=== PATIENT | male | born 1960 | race Caucasian/White ===

== ENCOUNTER 2021-11-27 12:27 | Inpatient (IN) ==
[2021-11-27] MEDS ORDERED: 0.9 % SODIUM CHLORIDE 1,000 ML IV ONE ×3 (13:10→15:06)
[2021-11-27] MEDS ORDERED: ONDANSETRON 4 MG/2 ML VIAL IV ONE (13:10)
--- NOTE | 2021-11-27 13:45 | Emergency Department Note ---
Nausea/Vomiting/Diarrhea HPI General Chief complaint: Nausea/Vomiting/Diarrhea Stated complaint: Diarrhea Time Seen by Provider: 11/27/21 13:09 Source: patient Mode of arrival: ambulatory History of Present Illness HPI Narrative: 61-year-old male with history of alcohol use disorder presents with 1 week of daily alcohol intake, about a liter of hard alcohol per day with persistent diarrhea and nausea and vomiting. Prior to a week ago he had stopped for 6 weeks. He sees a therapist at [facility], but has been unable to see her for the last month due to having COVID. He reports no history of florid withdrawals. When he attempts to stop he tapers himself down with his alcohol intake. He was admitted to [facility] over a year ago for severe hyponatremia and jaundice. He states his work-up was extensive at that time they saw no evidence of liver cirrhosis. He denies recurrence of jaundice. He does describe an abdominal pain but it is located in the epigastric area. He describes as a "burning" sensation. He denies hematemesis, or bloody stools. He has had several episodes of diarrhea daily. No known history of GI bleed. Related Data Home Medications Medication Instructions Recorded Confirmed omega-3 fatty acids 1,000 mg 1,000 mg PO QDAY 06/25/19 11/27/21 capsule (Fish Oil Concentrate) omeprazole 20 mg capsule,delayed 40 mg PO QDAY 06/25/19 11/27/21 release multivitamin 1 tab PO QAM 11/23/19 11/27/21 thiamine HCl (vitamin B1) 100 mg 100 mg PO QDAY 11/23/19 11/27/21 tablet melatonin 5 mg capsule 5 - 10 mg PO DAILY cap 02/01/20 11/27/21 levothyroxine 125 mcg tablet 125 mcg PO QDAY tab 03/30/21 11/27/21 diphenhydramine HCl 25 mg tablet 50 mg PO QHS tab 09/11/21 11/27/21 Previous Rx's Medication Instructions Recorded folic acid 1 mg tablet 1 mg PO QDAY #90 tab 02/01/20 losartan 100 1 tab PO QDAY #90 tab 08/22/21 mg-hydrochlorothiazide 25 mg tablet clonazepam 1 mg tablet 1 mg PO QHS 30 Days #30 tab 10/29/21 trazodone 150 mg tablet 150 mg PO QHS #90 tab 11/21/21 Allergies Allergy/AdvReac Type Severity Reaction Status Date / Time propranolol Allergy Severe Hallucinati Verified 11/26/21 11:44 ons Review of Systems ROS ROS Narrative: Narrative: [facility] Narrative Patient History Narrative: Narrative: Medical/Surgical/Family History All Active Problems (Updated 11/27/21 @ 18:15 by Sanjuana Ann PA-C) MADELIN (acute kidney injury) (Acute) Acute dehydration (Acute) Alcohol abuse with withdrawal (Acute) Acute hypokalemia (Acute) Acute hyponatremia (Acute) Alcoholic gastritis (Acute) Viral illness (Acute) Closed head injury (Acute) Dehydration (Acute) Alcohol intoxication (Acute) Acute alcoholic gastritis (Acute) Pain and swelling of right ankle (Acute) Tinea cruris (Acute) Hand dermatitis (Acute) Erectile dysfunction (Acute) Impaired fasting glucose (Chronic) History of alcohol abuse (Chronic) Morbid obesity (Chronic) Alcoholic hepatitis (Acute) Mixed hyperlipidemia (Chronic) Elevated hemoglobin (Chronic) Obesity (Chronic) Thyroid gland insufficiency (acquired) (Chronic) Alcoholism in recovery (Chronic) Stomach ulcer (Chronic) Joint pain (Chronic) Insomnia (Chronic) Sepsis (Chronic) Knee pain, left (Chronic) Hypothyroidism (Chronic) GERD (gastroesophageal reflux disease) (Chronic) Hypertension (Chronic) Medical History (Updated 11/27/21 @ 18:15 by Sanjuana Ann PA-C) Alcoholic hepatitis Alcoholism in recovery Elevated hemoglobin Erectile dysfunction With low libido. Will check testosterone levels. GERD (gastroesophageal reflux disease) Hand dermatitis Counseled on proper hand hygiene, washing hands last, and lukewarm water. Advised to use Aveeno or CeraVe lotion on the hands, avoid scented lotions. History of alcohol abuse States his last drink was October 20, and he feels better since quitting, and plans to remain abstinent. Hypertension Hypothyroidism Impaired fasting glucose A1c peaked at 6.5% in 2018. States that it was 6.2% last time checked. States fasting glucose in the mornings is currently under 105. Insomnia Joint pain Knee pain, left Mixed hyperlipidemia Morbid obesity Patient is losing weight intentionally. States he has lost 100 pounds 4 time s in his life. Now that he is not drinking, he is doing better at improving lifestyle. He is not exercising due to ankle pain. And he is trying to improve his diet by eating less carbohydrates. Obesity Pain and swelling of right ankle Chronic recurrence. Unknown etiology. Refer to podiatry Sepsis Stomach ulcer Thyroid gland insufficiency (acquired) Tinea cruris Continue OTC terbinafine cream twice daily. Surgical History H/O vasectomy (~1991) History of hernia repair (~1999) Inguinal History of surgery (~1999) New pt form says; "Gynecomastia" Family History Mother Arthritis Dementia High blood pressure Thyroid disease Heart disease, congenital Non insulin dependent diabetes mellitus with ophthalmic complication Breast cancer Twice, 29 surgeries Father , Age 76 Lung cancer High blood pressure Heavy smoker Son Autism Anxiety and depression Low testosterone Daughter Anxiety and depression Social History Smoking Status: Former smoker Alcohol Intake Frequency: 0-2 drinks per day Substance Use: does not use Exam Narrative Narrative: Narrative: Course Course Course Narrative: 61-year-old male presents for epigastric pain and nausea and vomiting with diarrhea in the setting of heavy alcohol use in the last week. Reevaluation(s) Reevaluation #1: CIWA score is 7 and he is tremulous on exam. Will check a blood alcohol level and administer Librium for mild withdrawal symptoms Establish IV and give IV fluids Check a CMP for electrolytes and liver function Give IV Protonix x1 dose. Reevaluation #2: CMP with potassium of 3.2, sodium of 131, creatinine of 3.9, AST is 100, ALT 47, T bili 1.6--> obtain right upper quadrant abdominal ultrasound to rule out acute cholecystitis Urine dip is negative for ketones, protein, nitrite and leukocyte esterase. Creatinine is 200. Normal P:C ratio CBC with leukocytosis of 12,200 Patient's epigastric pain is better but is still persistent. We will trial a GI cocktail. Give 20 mEq potassium orally x1 dose. Obtain Given the patient's MADELIN, electrolyte derangement, he would benefit from admission and further work-up and monitoring. I reached out to the hospitalist for admission. Reevaluation #3: Patient's pain is improved with GI cocktail. Right upper quadrant ultrasound is negative for acute cholecystitis Additional Reevaluation(s): Case was discussed with the hospitalist and there was some concern for other process going on with his kidneys not related to a prerenal problem. I was asked to consult Dr. Raymundo. Dr. Raymundo is happy to consult on this patient and requested that I order a total CPK and phosphorus. Vital Signs Vital signs: Vital Signs Temperature 96.8 F L 11/27/21 12:35 Pulse Rate 125 H 11/27/21 12:35 Respiratory Rate 24 H 11/27/21 12:35 Blood Pressure 130/80 11/27/21 12:35 Pulse Oximetry (%) 95 11/27/21 12:35 Temperature 96.8 F L 11/27/21 12:35 Pulse Rate 119 H 11/27/21 17:43 Respiratory Rate 24 H 11/27/21 12:35 Blood Pressure 121/76 11/27/21 16:46 Pulse Oximetry (%) 95 11/27/21 17:43 MDM MDM Narrative Medical decision making narrative: Mild alcohol withdrawal Acute kidney injury Alcoholic gastritis Hypokalemia Hyponatremia Patient has been accepted for admission. He has received 2 L of IV fluids for rehydration. Nephrology, Dr. Raymundo will consult. Phosphorus and creatinine kinase are pending. Potassium has been replaced. Patient has been given 50 mg of Librium and is feeling much less tremulous. Lab Data Result diagrams: 11/27/21 13:34 11/27/21 13:33 Labs: Lab Results 11/27/21 11/27/21 11/27/21 Range/Units 13:33 13:34 13:34 WBC 12.2 H (4.5-11.0) K/mcL RBC 4.79 (4.63-6.08) M/mcL Hgb 15.0 (13.7-17.5) g/dL Hct 42.1 (40.1-51.0) % POC Hct (41-55) % MCV 87.9 (80.0-100.0) fL MCH 31.3 (26.0-34.0) pg MCHC 35.6 (31.0-36.0) g/dL RDW 14.1 (11.5-14.5) % Plt Count 67 L (140-440) K/mcL MPV 12.6 H (7.4-10.4) fL Neut % (Auto) 85.4 H (38.0-78.0) % Lymph % (Auto) 6.7 L (15.5-49.0) % [place] % (Auto) 7.6 (1.0-12.0) % Eos % (Auto) 0 (0.0-7.0) % Baso % (Auto) 0.3 (0.0-2.0) % Lymph # (Auto) 0.82 L (1.50-4.80) K/mcL [place] # (Auto) 0.93 H (0.10-0.90) K/mcL Eos # (Auto) 0 (0.00-0.70) K/mcL Baso # (Auto) 0.04 (0.00-0.30) K/mcL Absolute Neutrophils 10.42 H (1.80-8.00) K/mcL POC Sodium (133-145) mEq/L Sodium 131 L (133-145) mmol/L POC Potassium (3.3-5.1) mEql/L Potassium 3.2 L (3.3-5.1) mmol/L POC Chloride (96-108) mEq/L Chloride 86 L (96-108) mmol/L Carbon Dioxide 21 L (22-30) mmol/L POC Total CO2 (22-30) mmol/L Anion Gap 24.0 H (8.0-16.0) POC BUN (6-20) mg/dL BUN 14 (8-23) mg/dL Creatinine 3.9 H (0.7-1.2) mg/dL POC Creatinine (0.6-1.2) mg/dL GFR Calculation 16 Glucose 143 H (70-105) mg/dL POC Glucose (70-105) mg/dL Calcium 9.6 (8.6-10.4) mg/dL POC WB Ioniz Calcium (1.16-1.32) mmEq/L Total Bilirubin 1.6 H (0.1-1.0) mg/dL AST 100 H (<40) U/L ALT 47 H (<40) U/L Alkaline Phosphatase 87 (39-117) U/L Total Protein 7.4 (5.9-8.4) gm/dL Albumin 4.1 (3.2-5.2) gm/dL Globulin 3.3 (2.2-3.7) gm/dL Albumin/Globulin Ratio 1.2 (1.0-2.3) Lipase 29 (7-60) U/L Ethyl Alcohol 0.197 H (<0.010) gm/dL 11/27/21 Range/Units 16:04 WBC (4.5-11.0) K/mcL RBC (4.63-6.08) M/mcL Hgb (13.7-17.5) g/dL Hct (40.1-51.0) % POC Hct 46 (41-55) % MCV (80.0-100.0) fL MCH (26.0-34.0) pg MCHC (31.0-36.0) g/dL RDW (11.5-14.5) % Plt Count (140-440) K/mcL MPV (7.4-10.4) fL Neut % (Auto) (38.0-78.0) % Lymph % (Auto) (15.5-49.0) % [place] % (Auto) (1.0-12.0) % Eos % (Auto) (0.0-7.0) % Baso % (Auto) (0.0-2.0) % Lymph # (Auto) (1.50-4.80) K/mcL [place] # (Auto) (0.10-0.90) K/mcL Eos # (Auto) (0.00-0.70) K/mcL Baso # (Auto) (0.00-0.30) K/mcL Absolute Neutrophils (1.80-8.00) K/mcL POC Sodium 134 (133-145) mEq/L Sodium (133-145) mmol/L POC Potassium 2.9 L* (3.3-5.1) mEql/L Potassium (3.3-5.1) mmol/L POC Chloride 94 L (96-108) mEq/L Chloride (96-108) mmol/L Carbon Dioxide (22-30) mmol/L POC Total CO2 22 (22-30) mmol/L Anion Gap (8.0-16.0) POC BUN 15 (6-20) mg/dL BUN (8-23) mg/dL Creatinine (0.7-1.2) mg/dL POC Creatinine 4.3 H (0.6-1.2) mg/dL GFR Calculation Glucose (70-105) mg/dL POC Glucose 139 H (70-105) mg/dL Calcium (8.6-10.4) mg/dL POC WB Ioniz Calcium 1.01 L (1.16-1.32) mmEq/L Total Bilirubin (0.1-1.0) mg/dL AST (<40) U/L ALT (<40) U/L Alkaline Phosphatase (39-117) U/L Total Protein (5.9-8.4) gm/dL Albumin (3.2-5.2) gm/dL Globulin (2.2-3.7) gm/dL Albumin/Globulin Ratio (1.0-2.3) Lipase (7-60) U/L Ethyl Alcohol (<0.010) gm/dL Discharge Plan Patient/Caregiver Discharge Instructions Pt seen by CLAIMS DIRECTOR/PA only: Yes Clinical Impression: MADELIN (acute kidney injury), Acute dehydration, Alcohol abuse with withdrawal, Acute hypokalemia, Acute hyponatremia, Alcoholic gastritis Patient Disposition: Xfer As Inpt ([facility]) Condition: Fair Follow up with: Ramirez Guzman MD [Primary Care Provider] - Prescriptions: No Action clonazepam 1 mg tablet 1 mg PO QHS 30 Days Qty: 30 0RF Rx Instructions: administer 30 minutes before bedtime Must last 30 days. trazodone 150 mg tablet 150 mg PO QHS Qty: 90 1RF thiamine HCl (vitamin B1) 100 mg tablet 100 mg PO QDAY 0RF multivitamin Tablet 1 tab PO QAM 0RF folic acid 1 mg tablet 1 mg PO QDAY Qty: 90 1RF levothyroxine 125 mcg tablet 125 mcg PO QDAY 0RF losartan-hydrochlorothiazide 100-25 mg tablet 1 tab PO QDAY Qty: 90 1RF diphenhydramine HCl 25 mg tablet 50 mg PO QHS 0RF omeprazole 20 mg capsule,delayed release(DR/EC) 40 mg PO QDAY 0RF omega-3 fatty acids [Fish Oil Concentrate] 1,000 mg capsule 1,000 mg PO QDAY 0RF melatonin 5 mg capsule 5 - 10 mg PO DAILY 0RF
[2021-11-27] MEDS ORDERED: PROPOFOL 200 MG/20 ML VIAL IV ONE (13:46)
[2021-11-27] MEDS ORDERED: PANTOPRAZOLE 40 MG TABLET PO ONE (14:07)
[2021-11-27 14:37] LABS: Alcohol,Blood 0.197 gm/dL (<0.010)
[2021-11-27 14:43] LABS: ALT/SGPT 47 U/L (<40); AST/SGOT 100 U/L (<40); Albumin 4.1 gm/dL (3.2-5.2); Albumin/Globulin Ratio 1.2 (1.0-2.3); Alkaline Phosphatase 87 U/L (39-117); Bilirubin,Total 1.6 mg/dL (0.1-1.0); Blood Urea Nitrogen 14 mg/dL (8-23); Calcium 9.6 mg/dL (8.6-10.4); Carbon Dioxide 21 mmol/L (22-30); Chloride 86 mmol/L (96-108); Globulin 3.3 gm/dL (2.2-3.7); Glomerular Filtration Rate 16; Glucose 143 mg/dL (70-105)
[2021-11-27] MEDS ORDERED: chlordiazePOXIDE 25 MG CAPSULE PO ONE (14:48)
[2021-11-27] MEDS ORDERED: POTASSIUM CHLORIDE 20 MEQ TABLET PO ONE ×2 (15:06→20:07)
[2021-11-27 15:43] LABS: Basophils # (Auto) 0.04 K/mcL (0.00-0.30); Basophils % (Auto) 0.3 % (0.0-2.0); Eosinophils # (Auto) 0 K/mcL (0.00-0.70); Eosinophils % (Auto) 0 % (0.0-7.0); Hematocrit 42.1 % (40.1-51.0); Lymphocytes # (Auto) 0.82 K/mcL (1.50-4.80); Lymphocytes % (Auto) 6.7 % (15.5-49.0); Mean Cell Volume 87.9 fL (80.0-100.0); Mean Corpuscular HGB Conc 35.6 g/dL (31.0-36.0); Mean Platelet Volume 12.6 fL (7.4-10.4); Monocytes # (Auto) 0.93 K/mcL (0.10-0.90); Monocytes % (Auto) 7.6 % (1.0-12.0); Neutrophils % (Auto) 85.4 % (38.0-78.0); Platelet Count 67 K/mcL (140-440); RBC 4.79 M/mcL (4.63-6.08); Red Cell Distribution Width 14.1 % (11.5-14.5); WBC 12.2 K/mcL (4.5-11.0)
[2021-11-27] MEDS ORDERED: PHENobarb/HYOSCY/ATROPINE/SCOP 1 DOSE BOTTLE PO ONE (15:50)
[2021-11-27 16:21] LABS: POC Blood Urea Nitrogen 15 mg/dL (6-20); POC CO2 22 mmol/L (22-30); POC Calcium, Ionized 1.01 mmEq/L (1.16-1.32); POC Chloride 94 mEq/L (96-108); POC Creatinine 4.3 mg/dL (0.6-1.2); POC Glucose, Random 139 mg/dL (70-105); POC Hematocrit 46 % (41-55); POC Potassium 2.9 mEql/L (3.3-5.1); POC Sodium 134 mEq/L (133-145)
--- NOTE | 2021-11-27 16:22 | Ultrasound Report ---
History: Elevated serum transaminase levels, alcohol abuse FINDINGS: Patient was technically difficult to scan due to large body habitus. The liver is enlarged and there is diffuse fatty infiltration. A 1.0 x 1.3 cm cyst is present deep in the left lobe. No solid mass is seen. Doppler shows normal blood flow in the hepatic and portal veins. No ascites is present. There are numerous small mobile stones within the gallbladder. The gallbladder wall is 2 mm in thickness and the patient was nontender while scanning over the gallbladder. Common bile duct measures up to 6 mm in diameter. Comparison with the prior ultrasound done on 10/30/19 shows the previously seen thickened gallbladder wall has returned to normal. The hepatomegaly and fatty infiltration are stable and the hepatic cyst is a chronic finding. IMPRESSION: Hepatomegaly with fatty infiltration Cholelithiasis, without evidence of cholecystitis Interpreted and Authenticated by: Maikel Estrada 11/27/21
[2021-11-27 18:20] LABS: Prothrombin Time 13.3 sec (11.9-14.5)
[2021-11-27] MEDS ORDERED: LORazepam 2 MG/ML VIAL IV ONE (18:37)
--- NOTE | 2021-11-27 18:50 | Internal Med History&Physical ---
HPI History of Present Illness Patient information: Note initiated : 11/27/21 at 6:37 pm Service Date, if different from initiated Date: [] Patient: Mohan Gambino a 61 y/o M admitted on for Diarrhea. Chief Complaint: [] History of present illness: Mr. Gambino is a 61 year old M Presents with nausea vomiting diarrhea. The diarrhea has been going on for a week but the nausea vomiting started this morning. Stop drinking heavy alcohol 6 weeks ago and has been following with [facility] but then started up hard alcohol for a week and then developed the symptoms. He also complains of being shaky and sweaty. And complains of pyrosis. In the ED his tremulous and tachycardic. He has mildly low sodium and potassium. BUN is fine but creatinine is quite elevated 3.9. AST and ALT ratios 2-1 Naturalist upon insulted due to the elevated creatinine. Abdominal ultrasound was done which showed fatty filtration of the liver and cholelithiasis, patient was nontender while palpating gallbladder on ultrasound and the common bile duct of 6 mm and previous ultrasound showed mildly thickened gallbladder as well. Review of Systems: Pertinent positives as above. Denies headache/fever/chills/chest or abdominal pain/cough/dyspnea. Remaining 10 point review of system reviewed negative PFSH PFSH All Active Problems (Updated 11/27/21 @ 18:15 by Sanjuana Ann PA-C) MADELIN (acute kidney injury) (Acute) Acute dehydration (Acute) Alcohol abuse with withdrawal (Acute) Acute hypokalemia (Acute) Acute hyponatremia (Acute) Alcoholic gastritis (Acute) Viral illness (Acute) Closed head injury (Acute) Dehydration (Acute) Alcohol intoxication (Acute) Acute alcoholic gastritis (Acute) Pain and swelling of right ankle (Acute) Tinea cruris (Acute) Hand dermatitis (Acute) Erectile dysfunction (Acute) Impaired fasting glucose (Chronic) History of alcohol abuse (Chronic) Morbid obesity (Chronic) Alcoholic hepatitis (Acute) Mixed hyperlipidemia (Chronic) Elevated hemoglobin (Chronic) Obesity (Chronic) Thyroid gland insufficiency (acquired) (Chronic) Alcoholism in recovery (Chronic) Stomach ulcer (Chronic) Joint pain (Chronic) Insomnia (Chronic) Sepsis (Chronic) Knee pain, left (Chronic) Hypothyroidism (Chronic) GERD (gastroesophageal reflux disease) (Chronic) Hypertension (Chronic) Medical History (Updated 11/27/21 @ 18:15 by Sanjuana Ann PA-C) Alcoholic hepatitis Alcoholism in recovery Elevated hemoglobin Erectile dysfunction With low libido. Will check testosterone levels. GERD (gastroesophageal reflux disease) Hand dermatitis Counseled on proper hand hygiene, washing hands last, and lukewarm water. Advised to use Aveeno or CeraVe lotion on the hands, avoid scented lotions. History of alcohol abuse States his last drink was October 20, and he feels better since quitting, and plans to remain abstinent. Hypertension Hypothyroidism Impaired fasting glucose A1c peaked at 6.5% in 2018. States that it was 6.2% last time checked. States fasting glucose in the mornings is currently under 105. Insomnia Joint pain Knee pain, left Mixed hyperlipidemia Morbid obesity Patient is losing weight intentionally. States he has lost 100 pounds 4 times in his life. Now that he is not drinking, he is doing better at improving lifestyle. He is not exercising due to ankle pain. And he is trying to improve his diet by eating less carbohydrates. Obesity Pain and swelling of right ankle Chronic recurrence. Unknown etiology. Refer to podiatry Sepsis Stomach ulcer Thyroid gland insufficiency (acquired) Tinea cruris Continue OTC terbinafine cream twice daily. Surgical History H/O vasectomy (~1991) History of hernia repair (~1999) Inguinal History of surgery (~1999) New pt form says; "Gynecomastia" Family History Mother Arthritis Dementia High blood pressure Thyroid disease Heart disease, congenital Non insulin dependent diabetes mellitus with ophthalmic complication Breast cancer Twice, 29 surgeries Father , Age 76 Lung cancer High blood pressure Heavy smoker Son Autism Anxiety and depression Low testosterone Daughter Anxiety and depression Social History household members: spouse and family housing: house lives independently: Yes marital status: occupational status: employed occupation: [employer] smoking status: Former smoker alcohol intake frequency: 0-2 drinks per day substance use type: does not use MEDS/ALLERGIES Home Medications and Allergies Home Medications Medication Instructions Recorded Confirmed Type omega-3 fatty acids 1,000 mg 1,000 mg PO QDAY 06/25/19 11/27/21 History capsule (Fish Oil Concentrate) omeprazole 20 mg capsule,delayed 40 mg PO QDAY 06/25/19 11/27/21 History release multivitamin 1 tab PO QAM 11/23/19 11/27/21 History thiamine HCl (vitamin B1) 100 mg 100 mg PO QDAY 11/23/19 11/27/21 History tablet folic acid 1 mg tablet 1 mg PO QDAY #90 tab 02/01/20 11/27/21 Rx melatonin 5 mg capsule 5 - 10 mg PO DAILY cap 02/01/20 11/27/21 History levothyroxine 125 mcg tablet 125 mcg PO QDAY tab 03/30/21 11/27/21 History losartan 100 1 tab PO QDAY #90 tab 08/22/21 11/27/21 Rx mg-hydrochlorothiazide 25 mg tablet diphenhydramine HCl 25 mg tablet 50 mg PO QHS tab 09/11/21 11/27/21 History clonazepam 1 mg tablet 1 mg PO QHS 30 Days #30 tab 10/29/21 11/27/21 Rx trazodone 150 mg tablet 150 mg PO QHS #90 tab 11/21/21 11/27/21 Rx Allergies Allergy/AdvReac Type Severity Reaction Status Date / Time propranolol Allergy Severe Hallucinati Verified 11/26/21 11:44 ons EXAM Constitutional Vitals: Temp Pulse Resp BP Pulse Ox 96.8 F L 119 H 24 H 121/76 95 11/27/21 12:35 11/27/21 17:43 11/27/21 12:35 11/27/21 16:46 11/27/21 17:43 Exam: General: Alert, Awake, No acute Distress, obese Eyes/N/T: EOMI, PERRL, dryMM Head/Neck: neck supple, normocephalic atraumatic CV: RRR, No murmurs, normal s1/s2 Pulm: Clear b/l, no wheezing/rhonchi/rales Abd: soft, nontender, +BS x4 Ext: no clubbing/cyanosis/edema Neuro: Alert, no focal deficits, moves all extremities, CN 2-12 grossly intact, symmetrical strength b/l upper/lower, sensations intact b/l upper/lower. Tremulous Skin: warm/dry DATA Data Completed and Pending Labs: Labs from last 24 hours 11/27/21 11/27/21 11/27/21 17:50 16:04 16:04 WBC RBC Hgb Hct POC Hct 46 MCV MCH MCHC RDW Plt Count MPV Neut % (Auto) Lymph % (Auto) [place] % (Auto) Eos % (Auto) Baso % (Auto) Lymph # (Auto) [place] # (Auto) Eos # (Auto) Baso # (Auto) Absolute Neutrophils PT INR POC Sodium 134 Sodium POC Potassium 2.9 L* Potassium POC Chloride 94 L Chloride Carbon Dioxide POC Total CO2 22 Anion Gap POC BUN 15 BUN Creatinine POC Creatinine 4.3 H GFR Calculation Glucose POC Glucose 139 H Calcium POC WB Ioniz Calcium 1.01 L Phosphorus Pending Total Bilirubin AST ALT Alkaline Phosphatase Total Creatine Kinase Pending Total Protein Albumin Globulin Albumin/Globulin Ratio Lipase Urine Color Pending Urine Appearance Pending Urine pH Pending Ur Specific [place] Pending Urine Protein Pending Urine Glucose (UA) Pending Urine Ketones Pending Urine Occult Blood Pending Urine Nitrate Pending Urine Bilirubin Pending Urine Urobilinogen Pending Ur Leukocyte Esterase Pending Ethyl Alcohol 11/27/21 11/27/21 11/27/21 13:34 13:34 13:34 WBC 12.2 H RBC 4.79 Hgb 15.0 Hct 42.1 POC Hct MCV 87.9 MCH 31.3 MCHC 35.6 RDW 14.1 Plt Count 67 L MPV 12.6 H Neut % (Auto) 85.4 H Lymph % (Auto) 6.7 L [place] % (Auto) 7.6 Eos % (Auto) 0 Baso % (Auto) 0.3 Lymph # (Auto) 0.82 L [place] # (Auto) 0.93 H Eos # (Auto) 0 Baso # (Auto) 0.04 Absolute Neutrophils 10.42 H PT 13.3 INR 1.0 POC Sodium Sodium POC Potassium Potassium POC Chloride Chloride Carbon Dioxide POC Total CO2 Anion Gap POC BUN BUN Creatinine POC Creatinine GFR Calculation Glucose POC Glucose Calcium POC WB Ioniz Calcium Phosphorus Total Bilirubin AST ALT Alkaline Phosphatase Total Creatine Kinase Total Protein Albumin Globulin Albumin/Globulin Ratio Lipase Urine Color Urine Appearance Urine pH Ur Specific [place] Urine Protein Urine Glucose (UA) Urine Ketones Urine Occult Blood Urine Nitrate Urine Bilirubin Urine Urobilinogen Ur Leukocyte Esterase Ethyl Alcohol 0.197 H 11/27/21 13:33 WBC RBC Hgb Hct POC Hct MCV MCH MCHC RDW Plt Count MPV Neut % (Auto) Lymph % (Auto) [place] % (Auto) Eos % (Auto) Baso % (Auto) Lymph # (Auto) [place] # (Auto) Eos # (Auto) Baso # (Auto) Absolute Neutrophils PT INR POC Sodium Sodium 131 L POC Potassium Potassium 3.2 L POC Chloride Chloride 86 L Carbon Dioxide 21 L POC Total CO2 Anion Gap 24.0 H POC BUN BUN 14 Creatinine 3.9 H POC Creatinine GFR Calculation 16 Glucose 143 H POC Glucose Calcium 9.6 POC WB Ioniz Calcium Phosphorus Total Bilirubin 1.6 H AST 100 H ALT 47 H Alkaline Phosphatase 87 Total Creatine Kinase Total Protein 7.4 Albumin 4.1 Globulin 3.3 Albumin/Globulin Ratio 1.2 Lipase 29 Urine Color Urine Appearance Urine pH Ur Specific [place] Urine Protein Urine Glucose (UA) Urine Ketones Urine Occult Blood Urine Nitrate Urine Bilirubin Urine Urobilinogen Ur Leukocyte Esterase Ethyl Alcohol A/P Narrative A/P Narrative: A: *Alcohol withdrawal: *Alcoholic hepatitis: *N/V/D: 2/2 above *MADELIN: 2/2 above *Hyponatremia/hypokalemia: *?early cirrhosis given Hyperbilirubinemia and thrombocytopenia vs 2/2 acute pathology *HTN: *GERD: *Hypothyroidism: * P: -ciwa protocol, prn mckenna, vitamins -IVF -f/u renal fxn, if does not improve will check renal u/s -f/u electrolytes -hold home ARB/HCTZ for madelin/hyponatremia - -referral to f/u with Dr. Viveros -ppx: lovenox / ppi Time Spent With Patient Time: Total time spent is greater than 50% in coordination of care (as documented) at patient's floor/unit and/or counseling patient:
[2021-11-27] MEDS ORDERED: LORazepam 2 MG/ML VIAL ONE (18:54)
[2021-11-27 19:08] LABS: Creatine Kinase 1289 U/L (24-195); Phosphorous 4.5 mg/dL (2.5-4.5)
[2021-11-27 19:08] LABS: Appearance,Urine Clear (Clear); Bacteria,Urine FEW /hpf (0); Bilirubin,Urine Negative (Negative); Color,Urine Yellow; Culture Indicated,Urine Yes; Glucose,Urine (UA) Negative (Negative); Ketones,Urine Negative (Negative); Leukocyte Esterase,Urine Negative /uL (Negative); Nitrate,Urine Negative (Negative); Protein,Urine Negative (Negative); Urine Blood Moderate ery/mcL (Negative); Urine RBC 1 /hpf (0-3); Urine Squamous Epithelial Cell 1 /hpf (0-4); Urine Transitional Epi Cells < 1 /hpf (0-2); Urine WBC 6 /hpf (0-4); Urobilinogen,Urine 0.2 E.U./dL mg/dL
[2021-11-27] MEDS ORDERED: METOCLOPRAMIDE 10 MG/2 ML VIAL IV PRN (19:51)
[2021-11-27] MEDS ORDERED: LABETALOL 5 MG/ML ML IV PRN (19:51)
[2021-11-27] MEDS ORDERED: THIAMINE 100 MG in 0.9 % SODIUM CHLORIDE 50 ML IV ONE (19:51)
[2021-11-27] MEDS ORDERED: cloNIDine HCL 0.1 MG TABLET PO PRN (19:51)
[2021-11-27] MEDS ORDERED: POTASSIUM CHLORIDE 20 MEQ TABLET PO PRN (19:51)
[2021-11-27] MEDS ORDERED: ACETAMINOPHEN 325 MG TABLET PO PRN (19:51)
[2021-11-27] MEDS ORDERED: POLYETHYLENE GLYCOL 3350 17 GM PACKET PO PRN (19:51)
[2021-11-27] MEDS ORDERED: IPRATROPIUM/ALBUTEROL 3 ML AMPUL.NEB NEB PRN (19:51)
[2021-11-27] MEDS ORDERED: POTASSIUM CHLORIDE 40 MEQ in DEXTROSE 5% IN WATER 500 ML IV PRN (19:51)
[2021-11-27] MEDS ORDERED: CALCIUM CARBONATE 500 MG TAB.CHEW CHEWED PRN (19:51)
[2021-11-27] MEDS ORDERED: MAGNESIUM SULFATE 2 GM/50 ML BAG IV PRN (19:51)
[2021-11-27] MEDS ORDERED: THIAMINE 100 MG/ML VIAL ONE (20:08)
[2021-11-27] MEDS: 0.9 % SODIUM CHLORIDE 1,000 ML IV SCH (20:39)
[2021-11-27] MEDS: LORazepam 2 MG/ML VIAL IV PRN ×3 (20:40→23:40)
[2021-11-27 21:02] LABS: Amphetamine Screen,Urine None detected; Barbiturate Screen,Urine None detected; Benzodiazepines Screen,Urine None detected; Cannabinoid Screen,Urine None detected; Cocaine Screen,Urine None detected; Opiate Screen,Urine None detected; Oxycodone, Urine Screen None detected; Phencyclidine Screen,Urine None detected
--- NOTE | 2021-11-27 21:10 | Event Note ---
Event Note Event Note: Call by ED concerning patient with ARF in the setting of presumed EtOH withdrawal syndrome. Vital Signs Temp Pulse Resp BP BP Pulse Ox 11/27/21 19:46 37.7 C H 20 156/89 96 11/27/21 17:43 119 H 95 11/27/21 17:15 126 H 95 11/27/21 16:46 116 H 121/76 93 11/27/21 16:31 70 133/79 94 11/27/21 16:16 110 H 134/83 85 L 11/27/21 16:09 116 H 129/75 90 11/27/21 15:38 109 H 94 11/27/21 15:30 107 H 145/96 93 11/27/21 15:15 108 H 138/88 95 11/27/21 15:00 108 H 128/83 92 11/27/21 14:45 104 H 130/83 92 11/27/21 14:30 101 H 121/78 89 L 11/27/21 14:15 96 H 132/92 92 11/27/21 14:00 96 H 137/87 95 11/27/21 13:57 98 H 84 L 11/27/21 13:56 100 H 137/85 11/27/21 13:49 100 H 137/83 90 11/27/21 13:47 104 H 89 L 11/27/21 12:35 36.0 C L 125 H 24 H 130/80 95 Intake and Output 11/27/21 11/27/21 11/27/21 05:59 13:59 21:59 Intake Total 1999 Balance 1999 Intake: IV 2000 Sodium Chloride 0.9% 1,000 ml @ 2000 Wide Open IV .Q0M ONE Rx#: [id number] Other: Weight 133.81 kg 133.81 kg Patient Weight 11/28/21 05:59 Weight 133.81 kg Laboratory Tests 11/27/21 11/27/21 13:34 17:50 Urine Color Yellow Urine Appearance Clear Urine pH 7.0 Ur Specific [place] 1.010 Urine Protein Negative Urine Glucose (UA) Negative Urine Ketones Negative Urine Occult Blood Moderate A Urine Nitrate Negative Urine Bilirubin Negative Urine Urobilinogen 0.2 e.u./dl A Ur Leukocyte Esterase Negative Urine WBC 6 H Urine Bacteria Few A Ethyl Alcohol 0.197 H 11/27/21 13:34 WBC 12.2 H Hgb 15.0 Hct 42.1 MCV 87.9 Plt Count 67 L Neut % (Auto) 85.4 H Lymph % (Auto) 6.7 L [place] % (Auto) 7.6 Eos % (Auto) 0 Baso % (Auto) 0.3 11/27/21 11/27/21 13:33 16:04 Sodium 131 L Potassium 3.2 L Chloride 86 L Carbon Dioxide 21 L Anion Gap 24.0 H BUN 14 Creatinine 3.9 H GFR Calculation 16 Glucose 143 H Calcium 9.6 Phosphorus 4.5 Total Bilirubin 1.6 H AST 100 H ALT 47 H Alkaline Phosphatase 87 Total Creatine Kinase 1289 H Total Protein 7.4 Albumin 4.1 Globulin 3.3 Albumin/Globulin Ratio 1.2 Lipase 29 Serum Creatinine Anion Gap Home Rx include ARB/HCt combo: D/Dx: Acute prerenal azotemia Need to calculate osmolar gap given ARF, Acidosis (ag = 24) to R/o ethylene glycol or methanol intoxication CPK not impressive in regards to rhabdo Additional orders placed Will see in AM
[2021-11-27] MEDS: diphenhydrAMINE 25 MG CAPSULE PO SCH (21:52)
[2021-11-27] MEDS: 0.9 % SODIUM CHLORIDE 10 ML SYRINGE IV SCH (21:54)
[2021-11-27] MEDS: ONDANSETRON 4 MG/2 ML VIAL IV PRN (21:54)
[2021-11-27] MEDS: SUCRALFATE 1 GM/10 ML ORAL.SUSP PO SCH (21:54)
[2021-11-27] MEDS: traZODone HCL 150 MG TABLET PO SCH (22:10)
[2021-11-28] MEDS: chlordiazePOXIDE 25 MG CAPSULE PO PRN ×6 (00:37→18:56)
[2021-11-28] MEDS: LORazepam 2 MG/ML VIAL IV PRN ×5 (00:38→10:38)
[2021-11-28 01:11] LABS: Creatinine,Urine Random 114.9 mg/dL (39.0-259.0)
[2021-11-28] MEDS: 0.9 % SODIUM CHLORIDE 1,000 ML IV SCH (04:30)
[2021-11-28] MEDS: ONDANSETRON 4 MG/2 ML VIAL IV PRN ×2 (05:41→11:43)
[2021-11-28] MEDS: LEVOTHYROXINE 125 MCG TABLET PO SCH (05:41)
[2021-11-28] MEDS: 0.9 % SODIUM CHLORIDE 10 ML SYRINGE IV SCH ×3 (05:42→21:01)
[2021-11-28] MEDS: OMEPRAZOLE 20 MG CAPSULE PO SCH (07:11)
[2021-11-28] MEDS: SUCRALFATE 1 GM/10 ML ORAL.SUSP PO SCH ×4 (07:11→21:00)
[2021-11-28 07:19] LABS: ALT/SGPT 38 U/L (<40); AST/SGOT 82 U/L (<40); Albumin 3.7 gm/dL (3.2-5.2); Albumin/Globulin Ratio 1.4 (1.0-2.3); Alkaline Phosphatase 74 U/L (39-117); Bilirubin,Direct 0.9 mg/dL (<0.3); Bilirubin,Total 2.1 mg/dL (0.1-1.0); Blood Urea Nitrogen 18 mg/dL (8-23); Calcium 8.4 mg/dL (8.6-10.4); Carbon Dioxide 25 mmol/L (22-30); Chloride 95 mmol/L (96-108); Globulin 2.6 gm/dL (2.2-3.7); Glomerular Filtration Rate 20; Glucose 134 mg/dL (70-105); Lactate Dehydrogenase 250 U/L (135-225); Phosphorous 2.9 mg/dL (2.5-4.5); Triglycerides 71 mg/dL (<150); Uric Acid 10.6 mg/dL (2.5-8.0)
[2021-11-28 07:20] LABS: Creatine Kinase 1581 U/L (24-195)
[2021-11-28 07:39] LABS: Basophils # (Auto) 0.02 K/mcL (0.00-0.30); Basophils % (Auto) 0.3 % (0.0-2.0); Eosinophils # (Auto) 0.03 K/mcL (0.00-0.70); Eosinophils % (Auto) 0.5 % (0.0-7.0); Hematocrit 36.1 % (40.1-51.0); Hemoglobin 12.5 g/dL (13.7-17.5); Lymphocytes % (Auto) 19.5 % (15.5-49.0); Mean Cell Volume 90.7 fL (80.0-100.0); Mean Corpuscular HGB Conc 34.6 g/dL (31.0-36.0); Mean Platelet Volume 13.2 fL (7.4-10.4); Monocytes # (Auto) 0.62 K/mcL (0.10-0.90); Monocytes % (Auto) 10.1 % (1.0-12.0); Neutrophils % (Auto) 69.6 % (38.0-78.0); Platelet Count 37 K/mcL (140-440); RBC 3.98 M/mcL (4.63-6.08); Red Cell Distribution Width 14.6 % (11.5-14.5); WBC 6.2 K/mcL (4.5-11.0)
[2021-11-28] MEDS: FOLIC ACID 1 MG TABLET PO SCH (07:53)
[2021-11-28] MEDS: POTASSIUM CHLORIDE 20 MEQ TABLET PO PRN (07:53)
[2021-11-28] MEDS: MULTIVIT,THER IRON,CA,FA & MIN 1 TABLET PO SCH (07:53)
[2021-11-28] MEDS: THIAMINE 100 MG TABLET PO SCH (07:53)
--- NOTE | 2021-11-28 07:58 | Internal Med Progress Note ---
SUBJECTIVE Subjective Patient information: Note initiated : 11/28/21 at 7:55 am Service Date, if different from initiated Date: [] Patient: Mohan Gambino a 61 y/o M admitted on 11/27/21 for Diarrhea. Chief Complaint: [] Interval history: History of present illness: Mr. Gambino is a 61 year old M Presents with nausea vomiting diarrhea. The diarrhea has been going on for a week but the nausea vomiting started this morning. Stop drinking heavy alcohol 6 weeks ago and has been following with [facility] but then started up hard alcohol for a week and then developed the symptoms. He also complains of being shaky and sweaty. And complains of pyrosis. In the ED his tremulous and tachycardic. He has mildly low sodium and potassium. BUN is fine but creatinine is quite elevated 3.9. AST and ALT ratios 2-1 Clinical Operations Manager upon insulted due to the elevated creatinine. Abdominal ultrasound was done which showed fatty filtration of the liver and cholelithiasis, patient was nontender while palpating gallbladder on ultrasound and the common bile duct of 6 mm and previous ultrasound showed mildly thickened gallbladder as well. 3/2 Patient feeling a little bit better today. Covid test in the ED negative. Patient not on oxygen. Thrombocytopenia worsened today. Leukocytosis resolved, no nausea vomiting overnight. Potassium and magnesium low. We will replete. Creatinine mildly improved. Review of Systems: denies headache/fever/chills/nausea/vomiting/chest or abdominal pain/cough/dyspnea/diarrhea. Otherwise see above. Constitutional Vitals: Vital Signs Temp Pulse Resp BP Pulse Ox 98.1 F 102 H 20 137/98 98 11/28/21 05:43 11/28/21 06:47 11/28/21 06:47 11/28/21 06:01 11/28/21 06:47 Period Temp Pulse Resp BP Sys/Soares Pulse Ox Last 24 Hr 96.8 F-99.8 F 70-126 0-24 95-156/65-98 84-98 Intake and Output 11/27/21 11/28/21 11/28/21 21:59 05:59 13:59 Intake Total 2351 Output Total 225 350 350 Balance 2126 -350 -350 Weight 133.81 kg Intake & Output: Intake & Output 11/27/21 11/28/21 11/28/21 21:59 05:59 13:59 Intake Total 2351 Output Total 225 350 350 Balance 2126 -350 -350 Weight 133.81 kg Intake: IV 2050 Sodium Chloride 0.9% 1,000 ml @ 2000 Wide Open IV .Q0M ONE Rx#: [id number] Vitamin B1 100 mg In Sodium 51 Chloride 0.9% 50 ml @ 50 mls/hr IV ONCE ONE Rx#:[id number] Oral 300 Output: Urine Catheter Amount 100 Void Amount 225 250 350 Other: Meal Dinner Urine Appearance Clear Clear Clear Urine Color Bright Yellow Pale Dark Yellow Urine Odor Normal Normal # Bowel Movements 1 Exam: General: Alert, Awake, No acute Distress, obese Eyes/N/T: EOMI, Head/Neck: neck supple, CV: RRR, No murmurs, Pulm: Clear b/l, no wheezing/rhonchi/rales Abd: soft, nontender, +BS x4 Ext: no clubbing/cyanosis/edema Neuro: Alert, no focal deficits, moves all extremities, Skin: warm/dry OBJ DATA Labs CBC & Chem 7: 11/28/21 05:08 11/28/21 05:08 Labs: Abnormal Lab Results 11/28/21 11/28/21 11/28/21 05:08 05:08 05:08 WBC RBC 3.98 L Hgb 12.5 L Hct 36.1 L RDW 14.6 H Plt Count 37 L* MPV 13.2 H Neut % (Auto) Lymph % (Auto) Lymph # (Auto) 1.20 L [place] # (Auto) Absolute Neutrophils Sodium POC Potassium Potassium 3.1 L POC Chloride Chloride 95 L Carbon Dioxide Anion Gap Creatinine 3.2 H POC Creatinine Glucose 134 H POC Glucose Uric Acid 10.6 H Calcium 8.4 L POC WB Ioniz Calcium Magnesium 1.1 L Total Bilirubin 2.1 H Direct Bilirubin 0.9 H GGT 351 H AST 82 H ALT Lactate Dehydrogenase 250 H Total Creatine Kinase 1581 H Urine Occult Blood Urine Urobilinogen Urine WBC Urine Bacteria Ur Random Chloride Ethyl Alcohol 11/27/21 11/27/21 11/27/21 17:50 17:50 16:04 WBC RBC Hgb Hct RDW Plt Count MPV Neut % (Auto) Lymph % (Auto) Lymph # (Auto) [place] # (Auto) Absolute Neutrophils Sodium POC Potassium Potassium POC Chloride Chloride Carbon Dioxide Anion Gap Creatinine POC Creatinine Glucose POC Glucose Uric Acid Calcium POC WB Ioniz Calcium Magnesium Total Bilirubin Direct Bilirubin GGT AST ALT Lactate Dehydrogenase Total Creatine Kinase 1289 H Urine Occult Blood Moderate A Urine Urobilinogen 0.2 e.u./dl A Urine WBC 6 H Urine Bacteria Few A Ur Random Chloride 21 L Ethyl Alcohol 11/27/21 11/27/21 11/27/21 16:04 13:34 13:34 WBC 12.2 H RBC Hgb Hct RDW Plt Count 67 L MPV 12.6 H Neut % (Auto) 85.4 H Lymph % (Auto) 6.7 L Lymph # (Auto) 0.82 L [place] # (Auto) 0.93 H Absolute Neutrophils 10.42 H Sodium POC Potassium 2.9 L* Potassium POC Chloride 94 L Chloride Carbon Dioxide Anion Gap Creatinine POC Creatinine 4.3 H Glucose POC Glucose 139 H Uric Acid Calcium POC WB Ioniz Calcium 1.01 L Magnesium Total Bilirubin Direct Bilirubin GGT AST ALT Lactate Dehydrogenase Total Creatine Kinase Urine Occult Blood Urine Urobilinogen Urine WBC Urine Bacteria Ur Random Chloride Ethyl Alcohol 0.197 H 11/27/21 13:33 WBC RBC Hgb Hct RDW Plt Count MPV Neut % (Auto) Lymph % (Auto) Lymph # (Auto) [place] # (Auto) Absolute Neutrophils Sodium 131 L POC Potassium Potassium 3.2 L POC Chloride Chloride 86 L Carbon Dioxide 21 L Anion Gap 24.0 H Creatinine 3.9 H POC Creatinine Glucose 143 H POC Glucose Uric Acid Calcium POC WB Ioniz Calcium Magnesium Total Bilirubin 1.6 H Direct Bilirubin GGT AST 100 H ALT 47 H Lactate Dehydrogenase Total Creatine Kinase Urine Occult Blood Urine Urobilinogen Urine WBC Urine Bacteria Ur Random Chloride Ethyl Alcohol Meds: Medications Acetaminophen (Acetaminophen 325 Mg Tablet) 650 mg PO Q6HP PRN; Protocol PRN Reason: Per Pain Protocol/Fever > 101 Albuterol/Ipratropium (Ipratropium/Albuterol 3 Ml Ampul.Neb) 3 ml NEB Q4HP PRN PRN Reason: Shortness Of Breath Calcium Carbonate/Glycine (Calcium Carbonate 500 Mg Tab.Chew) 500 mg CHEWED Q4HP PRN PRN Reason: Dyspepsia Last Admin: 11/27/21 21:56 Dose: 500 mg Documented by: Chlordiazepoxide HCl (Chlordiazepoxide 25 Mg Capsule) 25 mg PO Q4HP PRN PRN Reason: Alcohol Withdrawal Last Admin: 11/28/21 04:29 Dose: 25 mg Documented by: Clonidine HCl (Clonidine Hcl 0.1 Mg Tablet) 0.1 mg PO Q4HP PRN PRN Reason: ALC Diphenhydramine HCl (Diphenhydramine 25 Mg Capsule) 50 mg PO QHS [facility] Last Admin: 11/27/21 21:52 Dose: 50 mg Documented by: Enoxaparin Sodium (Enoxaparin 40 Mg/0.4 Ml Syringe) 40 mg SQ DAILY [facility] Last Admin: 11/28/21 07:53 Dose: 40 mg Documented by: Folic Acid (Folic Acid 1 Mg Tablet) 1 mg PO QDAY [facility] Last Admin: 11/28/21 07:53 Dose: 1 mg Documented by: Potassium Chloride 40 meq/ (Dextrose) 520 mls @ 130 mls/hr IV UD PRN PRN Reason: Potassium < 3 Magnesium Sulfate (Magnesium Sulfate) 2 gm in 50 mls @ 50 mls/hr IV UD PRN PRN Reason: Magnesium </= 1.6 Last Admin: 11/28/21 07:54 Dose: 50 mls/hr Documented by: Sodium Chloride (Sodium Chloride 0.9%) 1,000 mls @ 125 mls/hr IV .Q8H [facility] Stop: 11/28/21 11:50 Last Admin: 11/28/21 04:30 Dose: Not Given Documented by: Iron Carb/Multivit/Choker Setter/Folic Acid (Multivit,Ther Iron,Ca,Fa & Min 1 Tablet) 1 tab PO QAM [facility] Last Admin: 11/28/21 07:53 Dose: 1 tab Documented by: Labetalol HCl (Labetalol 5 Mg/Ml Ml) 0 mg IV Q2HP PRN PRN Reason: Hypertension Levothyroxine Sodium (Levothyroxine 125 Mcg Tablet) 125 mcg PO QAM@0630 [facility] Last Admin: 11/28/21 05:41 Dose: 125 mcg Documented by: Lorazepam (Lorazepam 2 Mg/Ml Vial) 0 mg IV Q4HP PRN; Protocol PRN Reason: Alcohol Withdrawal Last Admin: 11/28/21 05:41 Dose: 2 mg Documented by: Melatonin (Melatonin 3 Mg Tablet) 3 - 9 mg PO HSP PRN PRN Reason: Insomnia Metoclopramide HCl (Metoclopramide 10 Mg/2 Ml Vial) 10 mg IV Q6HP PRN PRN Reason: Nausea And Vomiting Omeprazole (Omeprazole 20 Mg Capsule) 40 mg PO QAMAC [facility] Last Admin: 11/28/21 07:11 Dose: 40 mg Documented by: Ondansetron HCl (Ondansetron 4 Mg/2 Ml Vial) 4 mg IV Q4HP PRN PRN Reason: Nausea And Vomiting Last Admin: 11/28/21 05:41 Dose: 4 mg Documented by: Polyethylene Glycol (Polyethylene Glycol 3350 17 Gm Packet) 17 gm PO DAILYP PRN PRN Reason: Constipation Potassium Chloride (Potassium Chloride 20 Meq Tablet) 40 meq PO UD PRN PRN Reason: Potssium is 3-3.5 Last Admin: 11/28/21 07:53 Dose: 40 meq Documented by: Potassium Chloride (Potassium Chloride 20 Meq Tablet) 40 meq PO UD PRN PRN Reason: Potassium < 3 Sodium Chloride (0.9 % Sodium Chloride 10 Ml Syringe) 10 ml IV Q8 [facility] Last Admin: 11/28/21 05:42 Dose: 10 ml Documented by: Sucralfate (Sucralfate 1 Gm/10 Ml Oral.Susp) 1 gm PO ACHS [facility] Stop: 11/29/21 17:01 Last Admin: 11/28/21 07:11 Dose: 1 gm Documented by: Thiamine HCl (Thiamine 100 Mg Tablet) 100 mg PO QDAY [facility] Last Admin: 11/28/21 07:53 Dose: 100 mg Documented by: Trazodone HCl (Trazodone Hcl 150 Mg Tablet) 150 mg PO QHS [facility] Last Admin: 11/27/21 22:10 Dose: 150 mg Documented by: A/P Narrative A/P Narrative: A: *Alcohol withdrawal: *possible alcoholic hepatitis vs confounding markers: *N/V/D: 2/2 above *Elevated CPK: byron 2/2 etoh binge/toxicity *MADELIN: 2/2 above (meds/volume depletion as opposed to Rhabod) -mild improvement *Hyponatremia/hypokalemia/magnesemia: *?early cirrhosis given Hyperbilirubinemia and thrombocytopenia vs 2/2 acute pathology *HTN: *GERD: *Hypothyroidism: P: -ciwa protocol, prn mckenna, vitamins -IVF -Nephrology following -f/u electrolytes -hold home ARB/HCTZ for madelin/hyponatremia -referral to f/u with Dr. Viveros -ppx: SCD (hold chemical ppx for plt<50k) / ppi Time Spent With Patient Time: Total time spent is greater than 50% in coordination of care (as documented) at patient's floor/unit and/or counseling patient: QUALITY VTE Deep Vein Thrombosis/Pulmonary Embolism Present on Admission: No
[2021-11-28] MEDS ORDERED: MAGNESIUM SULFATE 2 GM/50 ML BAG IV ONE (08:03)
[2021-11-28] MEDS ORDERED: POTASSIUM CHLORIDE 20 MEQ TABLET PO ONE (08:05)
--- NOTE | 2021-11-28 08:24 | Nephrology Consult Note ---
HPI Data of Consult Patient: new to practice Consult date: 11/27/21 Requesting physician: Rivas Dyer Primary Care Provider: Ramirez Guzman MD Consult Narrative Patient Information: Note initiated : 11/28/21 at 8:15 am Service Date, if different from initiated Date: [] Patient: Mohan Gambino 61 y/o M admitted on 11/27/21 for Diarrhea. Chief Complaint: [Diarrhea and EtOH use] Chief complaint: Diarrhea and weakness, resumption of EtOH Reason for consult: ARF and AG (+) Acidosis cc:: CC: Rivas Dyer Patient with normal GFR and reformed EtOH abuse fell "off the Wagon" and presented with elevated EtOH level, Tachycardia and concern for Etoh withdrawal. This was preceded by COVID-19 infection approximately a week prior to admission and the development of diarrhea and vomiting. Eventually he felt so weak that he presented to the emergency room where he was noted to have SCr 3.8 mg/dl which was new, AG (+) acidosis w/o ketosis. Mild elevation in CK but not sufficient to account for this degree of ARF. More likely would be the uses of ARB/HCT plus volume depleation leading to renal hypoperfusion. Not specifically suggested in Hx, the AG acidosis requires evaluation for MeOH and Ethylene glycol intoxication with calculation of osmolar gap, urine for oxalate crystals, and organic alcohol levels that won't return for quite some time. As he was leagally intoxicated at presentation, the enzyme ADH is competitively inhibited metabolizing EtOH so no urgency for HD if he had ingested Ethylene glycol Osmolar Gap ~13 and no report of urinary oxalate crystals => no ethylene glycol injestion UAG = +37 FeNa 0.86 Current Medications Acetaminophen (Acetaminophen 325 Mg Tablet) 650 mg PO Q6HP PRN; Protocol PRN Reason: Per Pain Protocol/Fever > 101 Albuterol/Ipratropium (Ipratropium/Albuterol 3 Ml Ampul.Neb) 3 ml NEB Q4HP PRN PRN Reason: Shortness Of Breath Calcium Carbonate/Glycine (Calcium Carbonate 500 Mg Tab.Chew) 500 mg CHEWED Q4HP PRN PRN Reason: Dyspepsia Last Admin: 11/27/21 21:56 Dose: 500 mg Documented by: Chlordiazepoxide HCl (Chlordiazepoxide 25 Mg Capsule) 25 mg PO Q4HP PRN PRN Reason: Alcohol Withdrawal Last Admin: 11/28/21 08:30 Dose: 25 mg Documented by: Clonidine HCl (Clonidine Hcl 0.1 Mg Tablet) 0.1 mg PO Q4HP PRN PRN Reason: ALC Diphenhydramine HCl (Diphenhydramine 25 Mg Capsule) 50 mg PO QHS [facility] Last Admin: 11/27/21 21:52 Dose: 50 mg Documented by: Folic Acid (Folic Acid 1 Mg Tablet) 1 mg PO QDAY [facility] Last Admin: 11/28/21 07:53 Dose: 1 mg Documented by: Potassium Chloride 40 meq/ (Dextrose) 520 mls @ 130 mls/hr IV UD PRN PRN Reason: Potassium < 3 Magnesium Sulfate (Magnesium Sulfate) 2 gm in 50 mls @ 50 mls/hr IV UD PRN PRN Reason: Magnesium </= 1.6 Last Infusion: 11/28/21 09:41 Dose: Infused Documented by: Sodium Chloride (Sodium Chloride 0.9%) 1,000 mls @ 125 mls/hr IV .Q8H [facility] Stop: 11/28/21 11:50 Last Admin: 11/28/21 04:30 Dose: Not Given Documented by: Iron Carb/Multivit/Tama/Folic Acid (Multivit,Ther Iron,Ca,Fa & Min 1 Tablet) 1 tab PO [facility] Last Admin: 11/28/21 07:53 Dose: 1 tab Documented by: Labetalol HCl (Labetalol 5 Mg/Ml Ml) 0 mg IV Q2HP PRN PRN Reason: Hypertension Levothyroxine Sodium (Levothyroxine 125 Mcg Tablet) 125 mcg PO QA@0630 [facility] Last Admin: 11/28/21 05:41 Dose: 125 mcg Documented by: Lorazepam (Lorazepam 2 Mg/Ml Vial) 0 mg IV Q4HP PRN; Protocol PRN Reason: Alcohol Withdrawal Last Admin: 11/28/21 10:38 Dose: 2 mg Documented by: Melatonin (Melatonin 3 Mg Tablet) 3 - 9 mg PO HSP PRN PRN Reason: Insomnia Metoclopramide HCl (Metoclopramide 10 Mg/2 Ml Vial) 10 mg IV Q6HP PRN PRN Reason: Nausea And Vomiting Omeprazole ([facility]apsule) [facility] Admin: 11/28/21 07:11 Dose: 40 mg Documented by: Ondansetron HCl (Ondansetron 4 Mg/2 Ml Vial) 4 mg IV Q4HP PRN PRN Reason: Nausea And Vomiting Last Admin: 11/28/21 05:41 Dose: 4 mg Documented by: Polyethylene Glycol (Polyethylene Glycol 3350 17 Gm Packet) 17 gm PO DAILYP PRN PRN Reason: Constipation Potassium Chloride (Potassium Chloride 20 Meq Tablet) 40 meq PO UD PRN PRN Reason: Potssium is 3-3.5 Last Admin: 11/28/21 07:53 Dose: 40 meq Documented by: Potassium Chloride (Potassium Chloride 20 Meq Tablet) 40 meq PO UD PRN PRN Reason: Potassium < 3 Sodium Chloride (0.9 % Sodium Chloride 10 Ml Syringe) 10 ml IV Q8 [facility] Last Admin: 11/28/21 05:42 Dose: 10 ml Documented by: Sucralfate (Sucralfate 1 Gm/10 Ml Oral.Susp) 1 gm PO ACHS [facility] Stop: 11/29/21 17:01 Last Admin: 11/28/21 07:11 Dose: 1 gm Documented by: Thiamine HCl (Thiamine 100 Mg Tablet) 100 mg PO QDAY [facility] Last Admin: 11/28/21 07:53 Dose: 100 mg Documented by: Trazodone HCl (Trazodone Hcl 150 Mg Tablet) 150 mg PO QHS [facility] Last Admin: 11/27/21 22:10 Dose: 150 mg Documented by: Review of Systems All systems: reviewed and no additional remarkable complaints except as stated Review of systems: Somewhat groggy PFSH PFSH All Active Problems (Updated 11/28/21 @ 12:21 by Zia Raymundo MD) Acute prerenal azotemia (Acute) Diarrhea due to COVID-19 (Acute) Hypomagnesemia (Acute) Acidosis, metabolic (Acute) ARF (acute renal failure) (Acute) Hypertension (Chronic) GERD (gastroesophageal reflux disease) (Chronic) Hypothyroidism (Chronic) Knee pain, left (Chronic) Sepsis (Chronic) Insomnia (Chronic) Joint pain (Chronic) Stomach ulcer (Chronic) Alcoholism in recovery (Chronic) Thyroid gland insufficiency (acquired) (Chronic) Obesity (Chronic) Elevated hemoglobin (Chronic) Mixed hyperlipidemia (Chronic) Alcoholic hepatitis (Acute) Morbid obesity (Chronic) History of alcohol abuse (Chronic) Impaired fasting glucose (Chronic) Erectile dysfunction (Acute) Hand dermatitis (Acute) Tinea cruris (Acute) Pain and swelling of right ankle (Acute) Dehydration (Acute) Alcohol intoxication (Acute) Acute alcoholic gastritis (Acute) Closed head injury (Acute) Viral illness (Acute) MADELIN (acute kidney injury) (Acute) Acute dehydration (Acute) Alcohol abuse with withdrawal (Acute) Acute hypokalemia (Acute) Acute hyponatremia (Acute) Alcoholic gastritis (Acute) Medical History (Updated 11/28/21 @ 12:21 by Zia Raymundo MD) Alcoholic hepatitis Alcoholism in recovery Elevated hemoglobin Erectile dysfunction With low libido. Will check testosterone levels. GERD (gastroesophageal reflux disease) Hand dermatitis Counseled on proper hand hygiene, washing hands last, and lukewarm water. Advised to use Aveeno or CeraVe lotion on the hands, avoid scented lotions. History of alcohol abuse States his last drink was October 20, and he feels better since quitting, and plans to remain abstinent. Hypertension Hypothyroidism Impaired fasting glucose A1c peaked at 6.5% in 2018. States that it was 6.2% last time checked. States fasting glucose in the mornings is currently under 105. Insomnia Joint pain Knee pain, left Mixed hyperlipidemia Morbid obesity Patient is losing weight intentionally. States he has lost 100 pounds 4 times in his life. Now that he is not drinking, he is doing better at improving lifestyle. He is not exercising due to ankle pain. And he is trying to improve his diet by eating less carbohydrates. Obesity Pain and swelling of right ankle Chronic recurrence. Unknown etiology. Refer to podiatry Sepsis Stomach ulcer Thyroid gland insufficiency (acquired) Tinea cruris Continue OTC terbinafine cream twice daily. Surgical History H/O vasectomy (~1991) History of hernia repair (~1999) Inguinal History of surgery (~1999) New pt form says; "Gynecomastia" Family History Mother Arthritis Dementia High blood pressure Thyroid disease Heart disease, congenital Non insulin dependent diabetes mellitus with ophthalmic complication Breast cancer Twice, 29 surgeries Father , Age 76 Lung cancer High blood pressure Heavy smoker Son Autism Anxiety and depression Low testosterone Daughter Anxiety and depression Social History household members: spouse and family housing: house lives independently: Yes marital status: occupational status: employed occupation: [employer] smoking status: Former smoker alcohol intake frequency: 0-2 drinks per day substance use type: does not use MEDS/ALLERGIES Home Medications and Allergies Home Medications Medication Instructions Recorded Confirmed Type omega-3 fatty acids 1,000 mg 1,000 mg PO QDAY 06/25/19 11/27/21 History capsule (Fish Oil Concentrate) omeprazole 20 mg capsule,delayed 40 mg PO QDAY 06/25/19 11/27/21 History release multivitamin 1 tab PO QAM 11/23/19 11/27/21 History thiamine HCl (vitamin B1) 100 mg 100 mg PO QDAY 11/23/19 11/27/21 History tablet folic acid 1 mg tablet 1 mg PO QDAY #90 tab 02/01/20 11/27/21 Rx melatonin 5 mg capsule 5 - 10 mg PO DAILY cap 02/01/20 11/27/21 History levothyroxine 125 mcg tablet 125 mcg PO QDAY tab 03/30/21 11/27/21 History losartan 100 1 tab PO QDAY #90 tab 08/22/21 11/27/21 Rx mg-hydrochlorothiazide 25 mg tablet diphenhydramine HCl 25 mg tablet 50 mg PO QHS tab 09/11/21 11/27/21 History clonazepam 1 mg tablet 1 mg PO QHS 30 Days #30 tab 10/29/21 11/27/21 Rx trazodone 150 mg tablet 150 mg PO QHS #90 tab 11/21/21 11/27/21 Rx Allergies Allergy/AdvReac Type Severity Reaction Status Date / Time propranolol AdvReac Mild Hallucinati Verified 11/27/21 19:03 ons Physical Examination Vital Signs Vital signs: Temp Pulse Resp BP Pulse Ox 36.7 C 102 H 20 137/98 98 11/28/21 05:43 11/28/21 06:47 11/28/21 06:47 11/28/21 06:01 11/28/21 06:47 General Appearance General appearance: appears started age Exam Narrative: Discheveled EENT EENT: ATNC, PERRL, mucous membranes dry and scleral icterus Neck Neck: no JVD and no carotid bruit Respiratory Respiratory: course breath sounds and rhonchi Cardiovascular Cardiology: no murmurs, no rub, normal S1 and normal S2 Gastrointestinal Gastrointestinal: normoactive bowel sounds and no tenderness Integumentary Integumentary: no rash Neurologic Neurologic: asterixis, confused and reflexes 2+ and symmetric Musculoskeletal Musculoskeletal: no erythema and no cyanosis Psychiatric Psychiatric: mood/affect appropriate (lethargic but arousable) Results Lab Results Result Diagrams: 11/28/21 05:08 11/28/21 05:08 Lab results: Most recent lab results Calcium 8.4 mg/dL (8.6-10.4) L 11/28/21 05:08 Phosphorus 2.9 mg/dL (2.5-4.5) 11/28/21 05:08 Magnesium 1.1 mg/dL (1.6-2.5) L 11/28/21 05:08 A/P Assessment and plan (1) Acute prerenal azotemia: Status: Acute Comment: Combination of GI volume loss with diarrhea plus concomitant ARB/HCT administration (2) Acidosis, metabolic: Status: Acute Comment: GI bicarbonate loss with increased anion gap not due to ethylene glycol, methanol, lactic acidosis, or hyperphosphatemia (3) Hypomagnesemia: Status: Acute Comment: Poor p.o. intake and excess GI losses (4) Diarrhea due to COVID-19: Status: Acute Comment: Diarrhea has abated over the past few days Narrative A/P Narrative: * Continue to hold losartan HCT * Volume expand * Monitor magnesium, potassium, and phosphorus patient is at high risk for refeeding hypokalemia, hypophosphatemia, and is already hypomagesic * Anticipate 48 to 72 hours for improvement in GFR following volume repletion and the effect of his losartan to wain. 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
--- NOTE | 2021-11-28 08:53 | XRay Report ---
HISTORY: Hypoxia FINDINGS: The lungs are clear and well expanded. The heart size, pulmonary vasculature, mediastinum, alisson and pleura are normal. IMPRESSION: Normal exam Interpreted and Authenticated by: Maikel Estrada 11/28/21
[2021-11-28] MEDS ORDERED: ENOXAPARIN 40 MG/0.4 ML SYRINGE SQ SCH (09:00)
[2021-11-28] MEDS ORDERED: MELATONIN 3 MG TABLET PO PRN (09:00)
[2021-11-28] MEDS: traZODone HCL 150 MG TABLET PO SCH (21:00)
[2021-11-28] MEDS: diphenhydrAMINE 25 MG CAPSULE PO SCH (21:00)
[2021-11-29] MEDS: 0.9 % SODIUM CHLORIDE 10 ML SYRINGE IV SCH ×3 (06:11→20:41)
[2021-11-29 07:13] LABS: ALT/SGPT 31 U/L (<40); AST/SGOT 60 U/L (<40); Albumin 3.3 gm/dL (3.2-5.2); Albumin/Globulin Ratio 1.3 (1.0-2.3); Alkaline Phosphatase 65 U/L (39-117); Bilirubin,Direct 0.9 mg/dL (<0.3); Bilirubin,Total 1.9 mg/dL (0.1-1.0); Blood Urea Nitrogen 16 mg/dL (8-23); Calcium 8.4 mg/dL (8.6-10.4); Carbon Dioxide 26 mmol/L (22-30); Chloride 97 mmol/L (96-108); Globulin 2.6 gm/dL (2.2-3.7); Glomerular Filtration Rate 35; Glucose 118 mg/dL (70-105); Lactate Dehydrogenase 197 U/L (135-225); Phosphorous 2.3 mg/dL (2.5-4.5); Triglycerides 76 mg/dL (<150); Uric Acid 10.2 mg/dL (2.5-8.0)
[2021-11-29] MEDS: OMEPRAZOLE 20 MG CAPSULE PO SCH (07:18)
[2021-11-29] MEDS: LEVOTHYROXINE 125 MCG TABLET PO SCH (07:18)
[2021-11-29] MEDS: SUCRALFATE 1 GM/10 ML ORAL.SUSP PO SCH ×3 (07:18→18:55)
--- NOTE | 2021-11-29 08:00 | Nephrology Progress Note ---
SUBJECTIVE Subjective Patient information: Note initiated : 11/29/21 at 7:56 am Service Date, if different from initiated Date: [] Patient: Mohan Gambino 61 y/o M admitted on 11/27/21 for Diarrhea. Chief Complaint: [Diarrhea and vomiting, weakness, EtOH intoxication] Interval history: SEDR Stable VS Improving GFR Mag still low (recommend 2 gm IV x 2 today and recheck) K still low (80 mEq today / half IV and half PO) Improved mentsation and less autonomic sx suggestive of impending withdrawal Vital Signs Temp Pulse Resp BP Pulse Ox 11/29/21 04:01 36.8 C 77 14 113/87 96 11/29/21 03:01 83 14 138/91 92 11/29/21 02:01 87 14 106/68 91 11/29/21 01:48 93 11/29/21 01:01 85 8 L 120/72 93 11/29/21 00:01 37.2 C 92 H 33 H 118/65 95 11/28/21 23:01 84 16 125/78 95 11/28/21 22:01 94 H 17 129/81 97 11/28/21 21:59 94 H 17 126/80 94 11/28/21 20:05 92 H 17 95 11/28/21 20:01 37.7 C H 93 H 15 139/95 95 11/28/21 20:00 96 11/28/21 19:01 95 H 16 123/66 92 11/28/21 18:03 94 H 15 94 11/28/21 18:01 94 H 17 142/101 95 11/28/21 17:01 96 H 14 126/66 92 11/28/21 16:08 97 H 24 H 96 11/28/21 16:06 36.9 C 93 H 10 L 149/91 96 11/28/21 15:06 101 H 19 153/93 97 11/28/21 15:02 114 H 33 H 134/28 93 11/28/21 14:02 99 H 16 117/80 97 11/28/21 14:01 95 H 27 H 96 11/28/21 13:01 104 H 17 151/103 95 11/28/21 12:11 97 H 15 95 11/28/21 12:01 37.2 C 98 H 21 142/98 93 11/28/21 11:01 99 H 16 126/76 93 11/28/21 10:04 98 H 16 92 11/28/21 10:01 99 H 15 117/75 93 11/28/21 09:01 100 H 12 138/98 98 11/28/21 08:29 104 H 19 94 11/28/21 08:26 114 H 22 95 11/28/21 08:25 36.9 C 111 H 14 119/77 97 Intake and Output 11/28/21 11/29/21 11/29/21 21:59 05:59 13:59 Intake Total 1954 400 200 Output Total 725 650 350 Balance 1230 -250 -150 Intake: IV 1000 Sodium Chloride 0.9% 1,000 ml @ 1000 125 mls/hr IV .Q8H [facility] Rx#: [id number] Oral 955 400 200 Output: Urine Catheter Amount 350 Void Amount 375 650 350 Other: Meal Lunch Percent of Meal Consumed 75% Feeding Ability Independent Urine Appearance Clear Clear Clear Urine Color [place] Dark [place]apphire Urine Odor Strong Normal Normal Stool Size Small Small Stool Color Green Black Stool Consistency Soft Formed # Bowel Movements 1 1 # of times incontinent of 0 Bowels Weight 140.245 kg Laboratory Tests 11/29/21 05:13 Sodium 136 Potassium 3.0 L Chloride 97 Carbon Dioxide 26 Anion Gap 13.0 BUN 16 Creatinine 2.0 H GFR Calculation 35 Glucose 118 H Calcium 8.4 L Phosphorus 2.3 L Magnesium 1.3 L Lactate Dehydrogenase 197 Serum Creatinine Pertinent ROS: nothing new Additional PMFSH (Level 3 Only): N/A Constitutional Vitals: Vital Signs Temp Pulse Resp BP Pulse Ox 36.8 C 77 14 113/87 96 11/29/21 04:01 11/29/21 04:01 11/29/21 04:01 11/29/21 04:01 11/29/21 04:01 Period Temp Pulse Resp BP Sys/Soares Pulse Ox Last 24 Hr 36.8 C-37.7 C 77-114 8-33 106-153/28-103 91-98 Intake and Output 11/28/21 11/29/21 11/29/21 21:59 05:59 13:59 Intake Total 1954 400 200 Output Total 725 650 350 Balance 1230 -250 -150 Weight 140.245 kg Intake & Output: Intake & Output 11/28/21 11/29/21 11/29/21 21:59 05:59 13:59 Intake Total 1955 400 200 Output Total 725 650 350 Balance 1230 -250 -150 Weight 140.245 kg Intake: IV 1000 Sodium Chloride 0.9% 1,000 ml @ 1000 125 mls/hr IV .Q8H [facility] Rx#: [id number] Oral 955 400 200 Output: Urine Catheter Amount 350 Void Amount 375 650 350 Other: Meal Lunch Percent of Meal Consumed 75% Feeding Ability Independent Urine Appearance Clear Clear Clear Urine Color [place] Dark [place]apphire Urine Odor Strong Normal Normal Stool Size Small Small Stool Color Green Black Stool Consistency Soft Formed # Bowel Movements 1 1 # of times incontinent of 0 Bowels General appearance: cooperative and obese Head Head exam: Present normal inspection Eye Eye exam: Present EOMI and PERRL Pupils: Present PERRL Neck Neck exam: Absent meningismus or tenderness Respiratory Respiratory exam: Present normal respiratory exam and CTAB Cardiovascular Cardiovascular exam: Present normal rate and rhythm, +S1 and +S2; Absent tach ycardia GI/Abdominal GI/Abdominal exam: Present normal bowel sounds and soft; Absent guarding Extremities Exam Extremities exam: Absent pedal edema Neurological Exam Neurological exam: Present alert, normal gait and oriented X3 Psychiatric Psychiatric exam: Present normal affect and normal mood; Absent agitated or anxious Skin Skin exam: Present dry; Absent petechiae A/P Assessment and plan (1) Acute prerenal azotemia: Status: Acute Comment: Combination of GI volume loss with diarrhea plus concomitant ARB/HCT administration (2) Hypomagnesemia: Status: Acute Comment: Poor p.o. intake and excess GI losses (3) Hypokalemia due to excessive gastrointestinal loss of potassium: Status: Acute Comment: Replace PO and IV Replacing Mag Stopped HCTZ (4) Acquired hypophosphatemia: Assessment and plan: Refeeding, EtOH and poor recent intake Status: Acute Comment: Replace IV Narrative A/P Narrative: Assessment and plan (1) Acute prerenal azotemia: (2) Acidosis, metabolic: (3) Hypomagnesemia: (4) Diarrhea due to COVID-19: Narrative A/P Narrative: * Continue to hold losartan HCT * Appeares euvolemic * Monitor magnesium, potassium, and phosphorus patient is at high risk for refeeding hypokalemia, hypophosphatemia, and is already hypomagesic. Recheck K, Mg and PO4 at 1700 tonight * Anticipate 48 to 72 hours for improvement in GFR following volume repletion and the effect of his losartan to wain. Upon discharge, Clonidine TTS-1 for withdrawal prophylaxsis and HTN would be my choice. 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
--- NOTE | 2021-11-29 08:19 | Internal Med Progress Note ---
SUBJECTIVE Subjective Patient information: Note initiated : 11/29/21 at 8:18 am Service Date, if different from initiated Date: [] Patient: Mohan Gambino a 61 y/o M admitted on 11/27/21 for Diarrhea. Chief Complaint: [] Interval history: History of present illness: Mr. Gambino is a 61 year old M Presents with nausea vomiting diarrhea. The diarrhea has been going on for a week but the nausea vomiting started this morning. Stop drinking heavy alcohol 6 weeks ago and has been following with [facility] but then started up hard alcohol for a week and then developed the symptoms. He also complains of being shaky and sweaty. And complains of pyrosis. In the ED his tremulous and tachycardic. He has mildly low sodium and potassium. BUN is fine but creatinine is quite elevated 3.9. AST and ALT ratios 2-1 Privacy Officer upon insulted due to the elevated creatinine. Abdominal ultrasound was done which showed fatty filtration of the liver and cholelithiasis, patient was nontender while palpating gallbladder on ultrasound and the common bile duct of 6 mm and previous ultrasound showed mildly thickened gallbladder as well. 3/2 Patient feeling a little bit better today. Covid test in the ED negative. Patient not on oxygen. Thrombocytopenia worsened today. Leukocytosis resolved, no nausea vomiting overnight. Potassium and magnesium low. We will replete. Creatinine mildly improved. 3/3 Feeling better today. Last dose of Librium yesterday at 7:00pm. Review of Systems: denies headache/fever/chills/nausea/vomiting/chest or abdominal pain/cough/dyspnea/diarrhea. Otherwise see above. Constitutional Vitals: Vital Signs Temp Pulse Resp BP Pulse Ox 98.2 F 85 16 108/57 97 11/29/21 05:02 11/29/21 08:05 11/29/21 08:05 11/29/21 05:02 11/29/21 08:05 Period Temp Pulse Resp BP Sys/Soares Pulse Ox Last 24 Hr 98.2 F-99.9 F 73-114 8-33 106-153/28-103 91-98 Intake and Output 11/28/21 11/29/21 11/29/21 21:59 05:59 13:59 Intake Total 1955 400 200 Output Total 725 650 350 Balance 1230 -250 -150 Weight 140.245 kg Intake & Output: Intake & Output 11/28/21 11/29/21 11/29/21 21:59 05:59 13:59 Intake Total 1955 400 200 Output Total 725 650 350 Balance 1230 -250 -150 Weight 140.245 kg Intake: IV 1000 Sodium Chloride 0.9% 1,000 ml @ 1000 125 mls/hr IV .Q8H [facility] Rx#: [id number] Oral 955 400 200 Output: Urine Catheter Amount 350 Void Amount 375 650 350 Other: Meal Lunch Percent of Meal Consumed 75% Feeding Ability Independent Urine Appearance Clear Clear Clear Urine Color [place] Dark Sapphire Urine Odor Strong Normal Normal Stool Size Small Small Stool Color Green Black Stool Consistency Soft Formed # Bowel Movements 1 1 # of times incontinent of 0 Bowels Exam: General: Alert, Awake, No acute Distress, obese Eyes/N/T: EOMI, Head/Neck: neck supple, CV: RRR, No murmurs, Pulm: Clear b/l, no wheezing/rhonchi/rales Abd: soft, nontender, +BS x4 Ext: no clubbing/cyanosis/edema Neuro: Alert, no focal deficits, moves all extremities, Skin: warm/dry OBJ DATA Labs CBC & Chem 7: 11/29/21 05:13 11/29/21 05:13 Labs: Abnormal Lab Results 11/29/21 11/29/21 11/28/21 05:13 05:13 05:08 WBC RBC Hgb Hct RDW Plt Count MPV Neut % (Auto) Lymph % (Auto) Lymph # (Auto) [place] # (Auto) Absolute Neutrophils Sodium POC Potassium Potassium 3.0 L POC Chloride Chloride Carbon Dioxide Anion Gap Creatinine 2.0 H POC Creatinine Glucose 118 H POC Glucose Uric Acid 10.2 H Calcium 8.4 L POC WB Ioniz Calcium Phosphorus 2.3 L Magnesium 1.3 L Total Bilirubin 1.9 H Direct Bilirubin 0.9 H GGT 339 H AST 60 H ALT Lactate Dehydrogenase Total Creatine Kinase 697 H 1581 H Urine Occult Blood Urine Urobilinogen Urine WBC Urine Bacteria Ur Random Chloride Ethyl Alcohol 11/28/21 11/28/21 11/27/21 05:08 05:08 17:50 WBC RBC 3.98 L Hgb 12.5 L Hct 36.1 L RDW 14.6 H Plt Count 37 L* MPV 13.2 H Neut % (Auto) Lymph % (Auto) Lymph # (Auto) 1.20 L [place] # (Auto) Absolute Neutrophils Sodium POC Potassium Potassium 3.1 L POC Chloride Chloride 95 L Carbon Dioxide Anion Gap Creatinine 3.2 H POC Creatinine Glucose 134 H POC Glucose Uric Acid 10.6 H Calcium 8.4 L POC WB Ioniz Calcium Phosphorus Magnesium 1.1 L Total Bilirubin 2.1 H Direct Bilirubin 0.9 H GGT 351 H AST 82 H ALT Lactate Dehydrogenase 250 H Total Creatine Kinase Urine Occult Blood Urine Urobilinogen Urine WBC Urine Bacteria Ur Random Chloride 21 L Ethyl Alcohol 11/27/21 11/27/21 11/27/21 17:50 16:04 16:04 WBC RBC Hgb Hct RDW Plt Count MPV Neut % (Auto) Lymph % (Auto) Lymph # (Auto) [place] # (Auto) Absolute Neutrophils Sodium POC Potassium 2.9 L* Potassium POC Chloride 94 L Chloride Carbon Dioxide Anion Gap Creatinine POC Creatinine 4.3 H Glucose POC Glucose 139 H Uric Acid Calcium POC WB Ioniz Calcium 1.01 L Phosphorus Magnesium Total Bilirubin Direct Bilirubin GGT AST ALT Lactate Dehydrogenase Total Creatine Kinase 1289 H Urine Occult Blood Moderate A Urine Urobilinogen 0.2 e.u./dl A Urine WBC 6 H Urine Bacteria Few A Ur Random Chloride Ethyl Alcohol 11/27/21 11/27/21 11/27/21 13:34 13:34 13:33 WBC 12.2 H RBC Hgb Hct RDW Plt Count 67 L MPV 12.6 H Neut % (Auto) 85.4 H Lymph % (Auto) 6.7 L Lymph # (Auto) 0.82 L [place] # (Auto) 0.93 H Absolute Neutrophils 10.42 H Sodium 131 L POC Potassium Potassium 3.2 L POC Chloride Chloride 86 L Carbon Dioxide 21 L Anion Gap 24.0 H Creatinine 3.9 H POC Creatinine Glucose 143 H POC Glucose Uric Acid Calcium POC WB Ioniz Calcium Phosphorus Magnesium Total Bilirubin 1.6 H Direct Bilirubin GGT AST 100 H ALT 47 H Lactate Dehydrogenase Total Creatine Kinase Urine Occult Blood Urine Urobilinogen Urine WBC Urine Bacteria Ur Random Chloride Ethyl Alcohol 0.197 H Meds: Medications Acetaminophen (Acetaminophen 325 Mg Tablet) 650 mg PO Q6HP PRN; Protocol PRN Reason: Per Pain Protocol/Fever > 101 Albuterol/Ipratropium (Ipratropium/Albuterol 3 Ml Ampul.Neb) 3 ml NEB Q4HP PRN PRN Reason: Shortness Of Breath Calcium Carbonate/Glycine (Calcium Carbonate 500 Mg Tab.Chew) 500 mg CHEWED Q4HP PRN PRN Reason: Dyspepsia Last Admin: 11/27/21 21:56 Dose: 500 mg Documented by: Chlordiazepoxide HCl (Chlordiazepoxide 25 Mg Capsule) 25 mg PO Q4HP PRN PRN Reason: Alcohol Withdrawal Last Admin: 11/28/21 18:56 Dose: 25 mg Documented by: Clonidine HCl (Clonidine Hcl 0.1 Mg Tablet) 0.1 mg PO Q4HP PRN PRN Reason: ALC Last Admin: 11/28/21 18:56 Dose: 0.1 mg Documented by: Diphenhydramine HCl (Diphenhydramine 25 Mg Capsule) 50 mg PO QHS [facility] Last Admin: 11/28/21 21:00 Dose: 50 mg Documented by: Folic Acid (Folic Acid 1 Mg Tablet) 1 mg PO QDAY [facility] Last Admin: 11/28/21 07:53 Dose: 1 mg Documented by: Potassium Chloride 40 meq/ (Dextrose) 520 mls @ 130 mls/hr IV UD PRN PRN Reason: Potassium < 3 Magnesium Sulfate (Magnesium Sulfate) 2 gm in 50 mls @ 50 mls/hr IV UD PRN PRN Reason: Magnesium </= 1.6 Last Infusion: 11/28/21 09:41 Dose: Infused Documented by: Iron Carb/Multivit/Smog Technician/Folic Acid (Multivit,Ther Iron,Ca,Fa & Min 1 Tablet) 1 tab PO QAM [facility] Last Admin: 11/28/21 07:53 Dose: 1 tab Documented by: Labetalol HCl (Labetalol 5 Mg/Ml Ml) 0 mg IV Q2HP PRN PRN Reason: Hypertension Levothyroxine Sodium (Levothyroxine 125 Mcg Tablet) 125 mcg PO QAM@0630 [facility] Last Admin: 11/29/21 07:18 Dose: 125 mcg Documented by: Lorazepam (Lorazepam 2 Mg/Ml Vial) 0 mg IV Q4HP PRN; Protocol PRN Reason: Alcohol Withdrawal Last Admin: 11/28/21 10:38 Dose: 2 mg Documented by: Melatonin (Melatonin 3 Mg Tablet) 3 - 9 mg PO [facility] PRN PRN Reason: Insomnia Metoclopramide HCl (Metoclopramide 10 Mg/2 Ml Vial) 10 mg IV Q6HP PRN PRN Reason: Nausea And Vomiting Omeprazole (Omeprazole 20 Mg Capsule) 40 mg PO QAMAC [facility] Last Admin: 11/29/21 07:18 Dose: 40 mg Documented by: Ondansetron HCl (Ondansetron 4 Mg/2 Ml Vial) 4 mg IV Q4HP PRN PRN Reason: Nausea And Vomiting Last Admin: 11/28/21 11:43 Dose: 4 mg Documented by: Polyethylene Glycol (Polyethylene Glycol 3350 17 Gm Packet) 17 gm PO DAILYP PRN PRN Reason: Constipation Potassium Chloride (Potassium Chloride 20 Meq Tablet) 40 meq PO UD PRN PRN Reason: Potssium is 3-3.5 Last Admin: 11/28/21 07:53 Dose: 40 meq Documented by: Potassium Chloride (Potassium Chloride 20 Meq Tablet) 40 meq PO UD PRN PRN Reason: Potassium < 3 Sodium Chloride (0.9 % Sodium Chloride 10 Ml Syringe) 10 ml IV Q8 [facility] Last Admin: 11/29/21 06:11 Dose: 10 ml Documented by: Sucralfate (Sucralfate 1 Gm/10 Ml Oral.Susp) 1 gm PO ACHS [facility] Stop: 11/29/21 17:01 Last Admin: 11/29/21 07:18 Dose: 1 gm Documented by: Thiamine HCl (Thiamine 100 Mg Tablet) 100 mg PO QDAY [facility] Last Admin: 11/28/21 07:53 Dose: 100 mg Documented by: Trazodone HCl (Trazodone Hcl 150 Mg Tablet) 150 mg PO QHS [facility] Last Admin: 11/28/21 21:00 Dose: 150 mg Documented by: A/P Narrative A/P Narrative: A: *Alcohol withdrawal: improved *possible alcoholic hepatitis vs confounding markers: *N/V/D: 2/2 above, improved *Elevated CPK: byron 2/2 etoh binge/toxicity -improved *MADELIN on possible CKD(unknown baseilne): 2/2 above (meds/volume depletion as opposed to Rhabod) -improving *Hyponatremia/hypokalemia/magnesemia: *Volume Depletion: *?early cirrhosis given Hyperbilirubinemia and thrombocytopenia vs 2/2 acute pathology *HTN: *GERD: *Hypothyroidism: P: -ciwa protocol, prn mckenna, vitamins -IVF -Nephrology following -f/u electrolytes -hold home ARB/HCTZ for madelin/hyponatremia -referral to f/u with Dr. Viveros -ppx: SCD (hold chemical ppx for plt<50k) / ppi Time Spent With Patient Time: Total time spent is greater than 50% in coordination of care (as documented) at patient's floor/unit and/or counseling patient: QUALITY VTE Deep Vein Thrombosis/Pulmonary Embolism Present on Admission: No
[2021-11-29] MEDS: MULTIVIT,THER IRON,CA,FA & MIN 1 TABLET PO SCH (08:21)
[2021-11-29] MEDS: FOLIC ACID 1 MG TABLET PO SCH (08:21)
[2021-11-29] MEDS: POTASSIUM CHLORIDE 20 MEQ TABLET PO PRN (08:21)
[2021-11-29] MEDS: THIAMINE 100 MG TABLET PO SCH (08:21)
[2021-11-29] MEDS ORDERED: 0.9 % SODIUM CHLORIDE 1,000 ML IV ONE (08:22)
[2021-11-29 08:39] LABS: Basophils # (Auto) 0.02 K/mcL (0.00-0.30); Basophils % (Auto) 0.4 % (0.0-2.0); Eosinophils # (Auto) 0.11 K/mcL (0.00-0.70); Eosinophils % (Auto) 2.4 % (0.0-7.0); Hematocrit 34.5 % (40.1-51.0); Hemoglobin 11.7 g/dL (13.7-17.5); Lymphocytes # (Auto) 1.22 K/mcL (1.50-4.80); Lymphocytes % (Auto) 26.4 % (15.5-49.0); Mean Cell Volume 91.5 fL (80.0-100.0); Mean Corpuscular HGB Conc 33.9 g/dL (31.0-36.0); Mean Platelet Volume 14.3 fL (7.4-10.4); Monocytes # (Auto) 0.59 K/mcL (0.10-0.90); Monocytes % (Auto) 12.8 % (1.0-12.0); Platelet Count 29 K/mcL (140-440); RBC 3.77 M/mcL (4.63-6.08); Red Cell Distribution Width 14.1 % (11.5-14.5); WBC 4.6 K/mcL (4.5-11.0)
[2021-11-29] MEDS ORDERED: POTASSIUM PHOSPHATE 40 MEQ in DEXTROSE 5% IN WATER 500 ML IV ONE (09:54)
--- NOTE | 2021-11-29 12:13 | Discharge Summary ---
Discharge Provider Provider Patient information: Note initiated : 11/29/21 at 12:11 pm Service Date, if different from initiated Date: [] Patient: Mohan Gambino 61 y/o M admitted on 11/27/21 for Diarrhea. Chief Complaint: [] Date of admission: 11/27/21 19:46 Discharge date: 11/30/21 Primary care physician: Ramirez Guzman MD Consults: 11/27/21 Consult to Physician [CONS] Stat Comment: Consulting Provider: Rivas Dyer Reason For Exam: Physician to Consult Discharge Meds Discharge Medications Home Medications omega-3 fatty acids 1,000 mg capsule (Fish Oil Concentrate) 1,000 mg PO QDAY 06/25/19 [History Confirmed 11/27/21 Last Taken Unknown] omeprazole 20 mg capsule,delayed release 40 mg PO QDAY 06/25/19 [History Confirmed 11/27/21 Last Taken Unknown] multivitamin 1 tab PO QAM 11/23/19 [History Confirmed 11/27/21 Last Taken Unknown] thiamine HCl (vitamin B1) 100 mg tablet 100 mg PO QDAY 11/23/19 [History Confirmed 11/27/21 Last Taken Unknown] folic acid 1 mg tablet 1 mg PO QDAY #90 tab 02/01/20 [Rx Confirmed 11/27/21 Last Taken 1 Day Ago ~11/26/21] melatonin 5 mg capsule 5 - 10 mg PO DAILY cap 02/01/20 [History Confirmed 11/27/21 Last Taken Unknown] levothyroxine 125 mcg tablet 125 mcg PO QDAY tab 03/30/21 [History Confirmed 11/27/21 Last Taken 1 Day Ago ~11/26/21] diphenhydramine HCl 25 mg tablet 50 mg PO QHS tab 09/11/21 [History Confirmed 11/27/21 Last Taken 1 Day Ago ~11/26/21] clonazepam 1 mg tablet 1 mg PO QHS 30 Days #30 tab 10/29/21 [Rx Confirmed 11/27/21 Last Taken 1 Day Ago ~11/26/21] trazodone 150 mg tablet 150 mg PO QHS #90 tab 11/21/21 [Rx Confirmed 11/27/21 Last Taken Unknown] losartan 50 mg tablet 50 mg PO QDAY #30 tab 11/30/21 [Rx Last Taken Unknown] COURSE Hospital Course Hospital course: Interval history: History of present illness: Mr. Gambino is a 61 year old M Presents with nausea vomiting diarrhea. The diarrhea has been going on for a week but the nausea vomiting started this morning. Stop drinking heavy alcohol 6 weeks ago and has been following with [facility] but then started up hard alcohol for a week and then developed the symptoms. He also complains of being shaky and sweaty. And complains of pyrosis. In the ED his tremulous and tachycardic. He has mildly low sodium and potassium. BUN is fine but creatinine is quite elevated 3.9. AST and ALT ratios 2-1 Financial Professional upon insulted due to the elevated creatinine. Abdominal ultrasound was done which showed fatty filtration of the liver and cholelithiasis, patient was nontender while palpating gallbladder on ultrasound and the common bile duct of 6 mm and previous ultrasound showed mildly thickened gallbladder as well. 3/2 Patient feeling a little bit better today. Covid test in the ED negative. Patient not on oxygen. Thrombocytopenia worsened today. Leukocytosis resolved, no nausea vomiting overnight. Potassium and magnesium low. We will replete. Creatinine mildly improved. 3/3 Feeling better today. Last dose of Librium yesterday at 7:00pm. 3/4 Had some penile bleeding yesterday and was low platelets was given 1 bag of platelets. Resolved. Electrolytes improved. Stable for discharge close follow-up with alcohol recovery group and PCP. Creatinine much improved A: *Alcohol withdrawal: improved *possible alcoholic hepatitis vs confounding markers: *N/V/D: 2/2 above, improved *Elevated CPK: byron 2/2 etoh binge/toxicity *MADELIN on possible CKD(unknown baseilne): 2/2 above (meds/volume depletion as opposed to Rhabod) *Hyponatremia/hypokalemia/magnesemia: *Volume Depletion: *?early cirrhosis given Hyperbilirubinemia and thrombocytopenia vs 2/2 acute pathology *HTN: *GERD: *Hypothyroidism: P: -d/c HCTZ /hyponatremia. -referral to GI for Cirrhosis eval Discharge diagnosis: Alcohol withdrawal nausea vomiting diarrhea elevated CPK from alcohol toxic Secondary discharge diagnosis: Electrolyte imbalance from nausea vomiting diarrhea volume depletion possible early cirrhosis hypertension GERD hypothyroidism Time spent discussing smoking cessation with patient: more than 10 minutes Time Spent with Patient Time attestation: Total time spent providing and/or coordinating discharge services: EXAM Constitutional Vitals: Temp Pulse Resp BP Pulse Ox 98.2 F 85 16 108/57 97 11/29/21 05:02 11/29/21 08:05 11/29/21 08:05 11/29/21 05:02 11/29/21 08:05 Discharge Data Data Completed and Pending Labs on day of discharge: Labs from last 24 hours 11/29/21 11/29/21 11/29/21 05:13 05:13 05:13 WBC 4.6 RBC 3.77 L Hgb 11.7 L Hct 34.5 L MCV 91.5 MCH 31.0 MCHC 33.9 RDW 14.1 Plt Count 29 L* MPV 14.3 H Neut % (Auto) 58.0 Lymph % (Auto) 26.4 [place] % (Auto) 12.8 H Eos % (Auto) 2.4 Baso % (Auto) 0.4 Lymph # (Auto) 1.22 L [place] # (Auto) 0.59 Eos # (Auto) 0.11 Baso # (Auto) 0.02 Absolute Neutrophils 2.68 Sodium 136 Potassium 3.0 L Chloride 97 Carbon Dioxide 26 Anion Gap 13.0 BUN 16 Creatinine 2.0 H GFR Calculation 35 Glucose 118 H Uric Acid 10.2 H Calcium 8.4 L Phosphorus 2.3 L Magnesium 1.3 L Total Bilirubin 1.9 H Direct Bilirubin 0.9 H GGT 339 H AST 60 H ALT 31 Alkaline Phosphatase 65 Lactate Dehydrogenase 197 Total Creatine Kinase 697 H Total Protein 5.9 Albumin 3.3 Globulin 2.6 Albumin/Globulin Ratio 1.3 Triglycerides 76 Discharge Plan Patient/Caregiver Discharge Instructions Activity: increase activity as tolerated Diet: Regular Diet Activity Restrictions/Additional Instructions: Abstain from alcohol. Referral to insulation worker apprentice for cirrhosis evaluation in 3 to 10 days. Monitor blood pressure twice daily and keep a log and bring to PCP Prescriptions: New losartan 50 mg tablet 50 mg PO QDAY Qty: 30 0RF Continued clonazepam 1 mg tablet 1 mg PO QHS 30 Days Qty: 30 0RF Rx Instructions: administer 30 minutes before bedtime Must last 30 days. trazodone 150 mg tablet 150 mg PO QHS Qty: 90 1RF thiamine HCl (vitamin B1) 100 mg tablet 100 mg PO QDAY 0RF multivitamin Tablet 1 tab PO QAM 0RF folic acid 1 mg tablet 1 mg PO QDAY Qty: 90 1RF levothyroxine 125 mcg tablet 125 mcg PO QDAY 0RF diphenhydramine HCl 25 mg tablet 50 mg PO QHS 0RF omeprazole 20 mg capsule,delayed release(DR/EC) 40 mg PO QDAY 0RF omega-3 fatty acids [Fish Oil Concentrate] 1,000 mg capsule 1,000 mg PO QDAY 0RF melatonin 5 mg capsule 5 - 10 mg PO DAILY 0RF Discontinued losartan-hydrochlorothiazide 100-25 mg tablet 1 tab PO QDAY Qty: 90 1RF Follow Up Plan Follow up with: Ramirez Guzman MD [Primary Care Provider] - Patient Disposition: Home, Self-Care Prognosis: Fair Overall status at discharge: patient is progressing back to baseline Discharge Orders: Discharge Order (Routine); Ordered 11/30/21 Ordered By: Rivas Dyer [facility] VTE Deep Vein Thrombosis/Pulmonary Embolism Present on Admission: No
[2021-11-29 18:01] LABS: Phosphorous 2.8 mg/dL (2.5-4.5)
[2021-11-29] MEDS ORDERED: 0.9 % SODIUM CHLORIDE 250 ML IV SCH (18:45)
[2021-11-29] MEDS ORDERED: MAGNESIUM SULFATE 2 GM/50 ML BAG IV ONE (19:22)
[2021-11-29] MEDS: chlordiazePOXIDE 25 MG CAPSULE PO PRN (19:33)
[2021-11-29] MEDS: traZODone HCL 150 MG TABLET PO SCH (23:51)
[2021-11-29] MEDS: diphenhydrAMINE 25 MG CAPSULE PO SCH (23:51)
[2021-11-30] MEDS: LORazepam 2 MG/ML VIAL IV PRN (00:10)
[2021-11-30 06:54] LABS: Basophils # (Auto) 0.03 K/mcL (0.00-0.30); Basophils % (Auto) 0.6 % (0.0-2.0); Eosinophils # (Auto) 0.17 K/mcL (0.00-0.70); Eosinophils % (Auto) 3.5 % (0.0-7.0); Hemoglobin 11.4 g/dL (13.7-17.5); Lymphocytes # (Auto) 1.21 K/mcL (1.50-4.80); Lymphocytes % (Auto) 24.9 % (15.5-49.0); Mean Cell Volume 93.2 fL (80.0-100.0); Mean Corpuscular HGB Conc 33.5 g/dL (31.0-36.0); Monocytes # (Auto) 0.54 K/mcL (0.10-0.90); Monocytes % (Auto) 11.1 % (1.0-12.0); Neutrophils % (Auto) 59.9 % (38.0-78.0); Platelet Count 38 K/mcL (140-440); RBC 3.65 M/mcL (4.63-6.08); Red Cell Distribution Width 14.2 % (11.5-14.5); WBC 4.9 K/mcL (4.5-11.0)
[2021-11-30] MEDS: OMEPRAZOLE 20 MG CAPSULE PO SCH (07:03)
[2021-11-30] MEDS: LEVOTHYROXINE 125 MCG TABLET PO SCH (07:03)
[2021-11-30] MEDS: 0.9 % SODIUM CHLORIDE 10 ML SYRINGE IV SCH (07:04)
[2021-11-30 07:15] LABS: ALT/SGPT 30 U/L (<40); AST/SGOT 50 U/L (<40); Albumin 3.3 gm/dL (3.2-5.2); Albumin/Globulin Ratio 1.3 (1.0-2.3); Alkaline Phosphatase 66 U/L (39-117); Bilirubin,Direct 0.6 mg/dL (<0.3); Bilirubin,Total 1.3 mg/dL (0.1-1.0); Blood Urea Nitrogen 16 mg/dL (8-23); Calcium 7.9 mg/dL (8.6-10.4); Carbon Dioxide 23 mmol/L (22-30); Chloride 100 mmol/L (96-108); Globulin 2.6 gm/dL (2.2-3.7); Glomerular Filtration Rate 54; Glucose 122 mg/dL (70-105); Lactate Dehydrogenase 213 U/L (135-225); Phosphorous 2.6 mg/dL (2.5-4.5); Triglycerides 78 mg/dL (<150); Uric Acid 9.9 mg/dL (2.5-8.0)
[2021-11-30] MEDS: FOLIC ACID 1 MG TABLET PO SCH (08:27)
[2021-11-30] MEDS: THIAMINE 100 MG TABLET PO SCH (08:27)
[2021-11-30] MEDS: MULTIVIT,THER IRON,CA,FA & MIN 1 TABLET PO SCH (08:27)
[2021-11-30] MEDS ORDERED: POTASSIUM CHLORIDE 20 MEQ TABLET PO ONE (08:32)
[2021-11-30] MEDS ORDERED: MAGNESIUM SULFATE 8.12 MEQ in DEXTROSE 5% IN WATER 50 ML IV ONE (09:00)
== END 2021-11-30 12:45 | disposition home or self-care (01) | DRG 896 ==
LOC: ED 12:27 → ICU 19:46 → MEDSUR 11-29 15:27
PROVIDERS: ADMIT Internal Medicine; ATTEND Internal Medicine

== ENCOUNTER 2023-10-16 23:50 | Observation (INO) ==
[2023-10-16] MEDS ORDERED: ceFAZolin 1 GM VIAL IV ONE (23:56)
[2023-10-16] MEDS ORDERED: morphine 4 MG/ML VIAL IV ONE (23:57)
[2023-10-17] MEDS ORDERED: ONDANSETRON 4 MG/2 ML VIAL IV ONE ×2 (00:02→00:03)
[2023-10-17 00:31] LABS: Basophils # (Auto) 0.06 K/mcL (0.00-0.30); Basophils % (Auto) 0.8 % (0.0-2.0); Eosinophils # (Auto) 0.22 K/mcL (0.00-0.70); Hematocrit 46.9 % (40.1-51.0); Hemoglobin 15.2 g/dL (13.7-17.5); Lymphocytes # (Auto) 2.53 K/mcL (1.50-4.80); Mean Cell Volume 97.3 fL (80.0-100.0); Mean Corpuscular HGB Conc 32.4 g/dL (31.0-36.0); Mean Platelet Volume 12.9 fL (8.8-12.5); Monocytes # (Auto) 0.99 K/mcL (0.10-0.90); Monocytes % (Auto) 13.7 % (1.0-12.0); Neutrophils % (Auto) 47.4 % (38.0-78.0); Platelet Count 104 K/mcL (140-440); RBC 4.82 M/mcL (4.63-6.08); Red Cell Distribution Width 13.4 % (11.5-14.5); WBC 7.2 K/mcL (4.5-11.0)
[2023-10-17] MEDS ORDERED: fentaNYL 100 MCG/2 ML VIAL IV ONE (00:31)
[2023-10-17 00:54] LABS: Blood Urea Nitrogen 11 mg/dL (8-23); Calcium 9.4 mg/dL (8.6-10.4); Carbon Dioxide 26 mmol/L (22-30); Chloride 100 mmol/L (96-108); Glomerular Filtration Rate 64; Glucose 101 mg/dL (70-105)
[2023-10-17 01:39] LABS: ALT/SGPT 36 U/L (<40); AST/SGOT 34 U/L (<40); Albumin 4.4 gm/dL (3.2-5.2); Alkaline Phosphatase 103 U/L (39-117); Bilirubin,Direct < 0.2 mg/dL (0-0.3); Bilirubin,Total 0.3 mg/dL (0.1-1.0); Globulin 3.5 gm/dL (2.2-3.7)
[2023-10-17 02:24] LABS: INR 0.9 (0.9-1.1); Prothrombin Time 13.2 sec (11.9-14.5)
[2023-10-17] MEDS ORDERED: morphine 4 MG/ML VIAL IV PRN (03:21)
[2023-10-17] MEDS ORDERED: DEXTROSE 31 GM ORAL.SUSP PO PRN (03:21)
[2023-10-17] MEDS ORDERED: DEXTROSE 50% 50 ML VIAL IV PRN (03:21)
[2023-10-17] MEDS: 0.45 % SODIUM CHLORIDE 1,000 ML IV SCH ×2 (04:59→15:47)
[2023-10-17] MEDS: 0.9 % SODIUM CHLORIDE 10 ML SYRINGE IV SCH ×2 (06:04→15:47)
[2023-10-17] MEDS: INSULIN LISPRO 1 UNIT/0.01 ML UNIT SQ SCH ×3 (07:43→16:50)
[2023-10-17] MEDS ORDERED: SENNOSIDES 1 TABLET PO PRN (08:50)
[2023-10-17] MEDS ORDERED: POTASSIUM CHLORIDE 20 MEQ TABLET PO PRN ×2 (08:50)
[2023-10-17] MEDS ORDERED: IPRATROPIUM/ALBUTEROL 3 ML AMPUL.NEB NEB PRN ×2 (08:50→13:42)
[2023-10-17] MEDS ORDERED: POTASSIUM CHLORIDE 40 MEQ in DEXTROSE 5% IN WATER 500 ML IV PRN (08:50)
[2023-10-17] MEDS ORDERED: hydrALAZINE 20 MG/ML VIAL IV PRN (08:50)
[2023-10-17] MEDS ORDERED: POLYETHYLENE GLYCOL 3350 17 GM PACKET PO PRN (08:50)
[2023-10-17] MEDS ORDERED: ACETAMINOPHEN 325 MG TABLET PO PRN (08:50)
[2023-10-17] MEDS ORDERED: ONDANSETRON 4 MG/2 ML VIAL IV PRN (08:50)
[2023-10-17] MEDS ORDERED: MAGNESIUM SULFATE 2 GM/50 ML BAG IV PRN (08:50)
[2023-10-17] MEDS ORDERED: HYDROcodone/APAP 5/325MG TABLET PO PRN (08:50)
[2023-10-17] MEDS ORDERED: CYCLOBENZAPRINE 10 MG TABLET PO PRN (08:59)
[2023-10-17] MEDS ORDERED: OMEPRAZOLE 20 MG CAPSULE PO SCH (09:00)
[2023-10-17] MEDS ORDERED: LEVOTHYROXINE 125 MCG TABLET PO SCH (09:00)
[2023-10-17] MEDS ORDERED: cloNIDine TTS 1 1 PATCH PATCH TD SCH (09:00)
[2023-10-17] MEDS ORDERED: DOCUSATE SODIUM 100 MG CAPSULE PO SCH (09:00)
[2023-10-17] MEDS ORDERED: LABETALOL 5 MG/ML ML IV PRN (11:09)
[2023-10-17] MEDS ORDERED: ONDANSETRON 4 MG/2 ML VIAL ONE (12:05)
[2023-10-17] MEDS ORDERED: PROPOFOL 200 MG/20 ML VIAL IV ONE (12:05)
[2023-10-17] MEDS ORDERED: fentaNYL 100 MCG/2 ML VIAL ONE (12:05)
[2023-10-17] MEDS ORDERED: ROCURONIUM 10 MG/ML ML IV ONE (12:05)
[2023-10-17] MEDS ORDERED: MIDAZOLAM 2 MG/2 ML VIAL ONE (12:50)
[2023-10-17] MEDS ORDERED: ceFAZolin 3 GM in DEXTROSE 5% IN WATER 50 ML IV SCH (12:55)
[2023-10-17] MEDS ORDERED: HYDROmorphone 1 MG/ML SYRINGE ONE (13:24)
[2023-10-17] MEDS ORDERED: DEXMEDETOMIDINE HCL 200 MCG/2 ML VIAL ONE (13:32)
[2023-10-17] MEDS ORDERED: 0.9 % SODIUM CHLORIDE 100 ML IV ONE (13:32)
[2023-10-17] MEDS ORDERED: fentaNYL 100 MCG/2 ML VIAL IV PRN (13:42)
[2023-10-17] MEDS ORDERED: HYDROmorphone 0.5 MG/0.5 ML SYRINGE IV PRN (13:42)
[2023-10-17] MEDS ORDERED: FLUMAZENIL 0.1 MG/ML ML IV PRN (13:42)
[2023-10-17] MEDS ORDERED: NALOXONE HCL 0.4 MG/ML VIAL IV PRN (13:42)
[2023-10-17] MEDS ORDERED: LACTATED RINGERS 1,000 ML IV SCH (13:45)
[2023-10-17] MEDS ORDERED: BUPIVACAINE W/EPI 0.5% 50 ML VIAL IJ ONE (13:49)
[2023-10-17] MEDS ORDERED: 0.9 % SODIUM CHLORIDE 10 ML SYRINGE IV SCH ×2 (14:00→22:00)
[2023-10-17] MEDS ORDERED: SUGAMMADEX SODIUM 200 MG/2 ML VIAL IV ONE (14:05)
[2023-10-17] MEDS ORDERED: oxyCODONE/APAP 5/325MG TABLET PO PRN (14:37)
[2023-10-17] MEDS ORDERED: PNEUMOCOCCAL 23-VAL P-SAC VAC 0.5 ML SYRINGE IM ONE (17:00)
[2023-10-17] MEDS ORDERED: FLUZONE QUAD QS2023-24/PF 60 MCG/0.5 ML SYRINGE IM ONE (17:00)
[2023-10-17 18:47] VITALS: TEMP 98.4; O2SAT 93
[2023-10-17] MEDS ORDERED: diphenhydrAMINE 25 MG CAPSULE PO SCH (21:00)
[2023-10-17] MEDS ORDERED: traZODone HCL 150 MG TABLET PO SCH (21:00)
[2023-10-17] MEDS ORDERED: clonazePAM 1 MG TABLET PO SCH (21:00)
[2023-10-17] MEDS ORDERED: MELATONIN 3 MG TABLET PO SCH (21:00)
[2023-10-18] MEDS ORDERED: DILTIAZEM 180 MG CAP.XL.24H PO SCH (09:00)
[2023-10-18] MEDS ORDERED: INFLUENZA VACCINE IM ONE (10:00)
[2023-10-19] MEDS ORDERED: cloNIDine TTS 1 1 PATCH PATCH TD SCH (09:00)
== END 2023-10-17 18:53 | disposition home or self-care (01) ==
LOC: ED 23:50 → INTOOBSV 10-17 06:48 → MEDSUR 10-17 06:48
PROVIDERS: ADMIT Physician Assistant Medical; ATTEND Orthopaedic Surgery